=== PATIENT | female | born 1970 | race Caucasian/White ===

== ENCOUNTER 2016-08-09 20:39 | Emergency (ER) | payer OTHER ==
[2016-08-09] MEDS ORDERED: dexameTHASONE 4 MG/ML 1ML VIAL (J1100) As Ordered ONE (21:07)
[2016-08-09] MEDS ORDERED: clonazePAM 0.5 MG TAB As Ordered ONE (22:37)
--- NOTE | 2016-08-09 22:50 | EDDOCDS ---
Nurse's Notes [facility] Name: Grecia Lainez Age: 46 yrs Sex: Female : 1970 Arrival Date: 08/09/2016 Time: 20:39 Bed 8 Private MD: Khushbu Abreu GOV Diagnosis: Unspecified symptoms and signs involving general sensations and perceptions;Anxiety disorder, unspecified Presentation: 08/09 20:46 Red Flag criteria, patient assessed and taken directly to a bed. cz 20:48 Presenting complaint: Patient states: had two bites of cake started to feel tightness rs3 around throat. took Benadryl. symptoms not relieved. h/o allergic to peanuts and gluten. states " i did not want to use a EpiPen, its too expensive to replace it". Onset: The symptoms/episode began/occurred suddenly. The patient has a history of a previous allergic reaction. The previous reaction was anaphylactic. Anaphylaxis evaluation, the patient reports or I have noted the following symptoms which indicate a significant risk of anaphylaxis: lump in the throat which may suggest laryngeal edema. Adult Sepsis Screening: The patient does not have new or worsening altered mentation. Patient's respiratory rate is less than 22. Systolic blood pressure is greater than 100. Patient has a qSOFA score of 0- Negative Sepsis Screen. Suicide/Homicide risk assessment- the patient denies having any suicidal and/or homicidal ideations and does not present with any other emotional, behavioral or mental health complaints. 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 Transition of care: patient was not received from another setting of care. 20:48 Acuity: SORAIDA Level 3 rs3 20:48 Method Of Arrival: Walkin/Carried/Asstd rs3 Triage Assessment: 20:55 General: Appears in no apparent distress. Pain: Denies pain. HIV screening NA for this rs3 visit Offered previously. Respiratory: Reports shortness of breath on exertion. Historical: - Allergies: Peanut (Anaphylaxis); Gluten Protein (Swelling); PENICILLINS (Anaphylaxis); SULFA (SULFONAMIDES) (Rash); IV Dye (Anaphylaxis); - Home Meds: 1. clonidine HCl 0.1 mg Oral tab 1 tab once daily 2. spironolactone 25 mg Oral tab as needed - PMHx: Anxiety; Hypercholesterolemia; - PSHx: Hysterectomy; ; - Social history: Smoking status: Patient states was never smoker of tobacco. No barriers to communication noted, The patient speaks fluent Fijian. - Family history: Not pertinent. - : The pt / caregiver states he / she is not on anticoagulants. Home medication list is obtained from the patient. - Exposure Risk Screening:: None identified. Screenin:00 Screening information is obtained from the patient. Fall risk: No risks identified. jp6 Assistance ADL's: requires no assistance with activities of daily living. Abuse/DV Screen: The patient / caregiver reports he/she is: not in a situation that causes fear, pain or injury. Nutritional screening: No deficits noted. home support is adequate. 21:17 Advance Directives: Currently, there is a health care proxy, pt's not sure. There is no 6 active DNR order. There is no living will. Assessment: 21:00 General: Appears distressed, well developed, well nourished, Behavior is anxious, jp6 cooperative, Reports taking a bite of banana cake and mouth tingling-states "I guess i'm allergic to gluten". Pain: Denies pain. Neurological: No deficits noted. Level of Consciousness is awake, alert, Oriented to person, place, time. EENT: Oral mucosa is moist. no angioedema noted. Throat is clear. Cardiovascular: No deficits noted. Respiratory: No deficits noted. Airway is patent Respiratory effort is even, unlabored, Respiratory pattern is regular, symmetrical, Breath sounds are clear bilaterally. GI: No deficits noted. : No deficits noted. Derm: No deficits noted. Skin is pink, warm & dry. Musculoskeletal: No deficits noted. 21:17 Reassessment: Pt is extremely anxious.Dexamthasone given as ordered.. jp6 22:02 Reassessment: Patient appears in no apparent distress at this time. Patient states jp6 symptoms have improved. General: Appears in no apparent distress, comfortable, Behavior is anxious. Pain: Denies pain. Neurological: No deficits noted. EENT: No deficits noted. Cardiovascular: No deficits noted. Respiratory: No deficits noted. Airway is patent Respiratory effort is even, unlabored, Respiratory pattern is regular, symmetrical. GI: No deficits noted. : No deficits noted. Derm: No deficits noted. Musculoskeletal: No deficits noted. Vital Signs: 20:41 BP 153 / 90; Pulse 85; Resp 20 S; Temp 96.6(O); Pulse Ox 100% on R/A; Weight 95.25 kg dd6 (R); Height 5 ft. 7 in. (170.18 cm) (R); 20:50 Pulse 90 MON; Pulse Ox 99% ; jp6 21:49 BP 127 / 69 (auto/); jp6 21:49 Pulse 72 MON; Pulse Ox 95% ; jp6 22:01 Pulse 74 MON; Pulse Ox 95% ; jp6 22:40 BP 134 / 82; Pulse 76; Resp 18; Temp 98.3(TE); Pulse Ox 98% on R/A; nahomy 20:41 Body Mass Index 32.89 (95.25 kg, 170.18 cm) dd6 Vitals: 20:41 Log In Time: August 09, 2016 at 20:39. dd6 20:42 RN notified that patient meets Red Flag criteria. dd6 ED Course: 20:40 Patient visited by Desean Ribeiro PCA. dd6 20:40 Khushbu Abreu is Private Physician. dd6 20:40 Patient moved to Waiting dd6 20:45 Patient moved to 8 dd6 20:46 Tremayne Bruce DO is Attending Physician. cs11 20:46 Patient visited by Tremayne Bruce DO. cs11 20:50 Luly Sahni,RN is Primary Nurse. jp6 20:51 Triage Initiated rs3 20:57 Patient visited by Eleanor Hurtado PCA. nahomy 20:57 Pt greeted and oriented to ED. Patient advised of names of staff involved in care, nahomy location of call wolf, wait times and NPO status. Accompanied by Significant Other, Patient has correct armband on for positive identification. Placed in gown. Bed in low position. Call light in reach. Side rails up X2. Seizure precautions initiated. blow down helper on. Pulse ox on. NIBP on. 21:00 The patient / caregiver is instructed regarding the plan of care and ED course. jp6 21:00 Inserted saline lock: 20 gauge in left antecubital area and blood collected. jp6 21:35 [facility] Payment Agreement was scanned into [employer] and attached to record. zo 22:00 Patient visited by Eleanor Hurtado PCA. nahomy 22:01 No procedures done that require assistance. jp6 22:36 Khushbu Abreu is Referral Physician. cs11 22:41 Patient visited by Eleanor Hurtado PCA. nahomy 22:48 Discontinued lock intact, bleeding controlled, pressure dressing applied, No jp6 redness/swelling at site. Administered Medications: 21:16 Drug: Dexamethasone 10 mg [dexamethasone 4 mg/mL injection solution] Route: IV; Rate: jp6 bolus; Site: left antecubital; 22:39 Drug: clonazePAM 0.5 mg [clonazepam 0.5 mg tablet (1 tabs)] Route: PO; jp6 Order Results: There are currently no results for this order. Outcome: 22:37 Discharge ordered by Provider. cs11 22:48 Discharge Assessment: Patient awake, alert and oriented x 3. No cognitive and/or jp6 functional deficits noted. Patient verbalized understanding of disposition instructions. patient administered narcotics - no. Discharge Assessment: patient administered narcotics - yes. Pt provided with safe discharge. The following High Risk Discharge criteria are identified: None. Discharged to home ambulatory, with significant other. Condition: improved. Discharge instructions given to patient, Instructed on discharge instructions, follow up and referral plans. Demonstrated understanding of instructions, Pt was receptive of discharge instructions/ teaching. No special radiology studies were completed. Property sent home with patient. 22:50 Patient left the ED. jp6 Signatures: Júnior Jones, RN Kavon Vieira Daniell, BOOK EDITOR BOOK EDITOR dd6 Mena Jackson RN RN rs3 Eleanor Hurtado, BOOK EDITOR BOOK EDITOR nahomy Tremayne Bruce, DO DO cs11 Luly Sahni RN RN jp6 MTDD
--- NOTE | 2016-08-09 22:50 | EDDOCDS ---
Physician Documentation [facility] Name: Grecia Lainez Age: 46 yrs Sex: Female : 1970 Arrival Date: 08/09/2016 Time: 20:39 Bed 8 Private MD: Khushbu Abreu, GOV Disposition: 08/09/16 22:37 Discharged to Home/Self Care. Impression: Unspecified symptoms and signs involving general sensations and perceptions, Anxiety disorder, unspecified. - Condition is Stable. - Medication Reconciliation, Local Pharmacy Hours form. - Follow up: Khushbu Abreu; When: Call to arrange an appointment; Reason: Recheck today's complaints. - Problem is new. - Symptoms have improved. Historical: - Allergies: Peanut (Anaphylaxis); Gluten Protein (Swelling); PENICILLINS (Anaphylaxis); SULFA (SULFONAMIDES) (Rash); IV Dye (Anaphylaxis); - Home Meds: 1. clonidine HCl 0.1 mg Oral tab 1 tab once daily 2. spironolactone 25 mg Oral tab as needed - PMHx: Anxiety; Hypercholesterolemia; - PSHx: Hysterectomy; ; - Social history: Smoking status: Patient states was never smoker of tobacco. No barriers to communication noted, The patient speaks fluent Malaysian. - Family history: Not pertinent. - : The pt / caregiver states he / she is not on anticoagulants. Home medication list is obtained from the patient. - Exposure Risk Screening:: None identified. Vital Signs: 08/09 20:41 BP 153 / 90; Pulse 85; Resp 20 S; Temp 96.6(O); Pulse Ox 100% on R/A; Weight 95.25 kg / dd6 209.99 lbs (R); Height 5 ft. 7 in. (170.18 cm) (R); 20:50 Pulse 90 MON; Pulse Ox 99% ; jp6 21:49 BP 127 / 69 (auto/); jp6 21:49 Pulse 72 MON; Pulse Ox 95% ; jp6 22:01 Pulse 74 MON; Pulse Ox 95% ; jp6 22:40 BP 134 / 82; Pulse 76; Resp 18; Temp 98.3(TE); Pulse Ox 98% on R/A; nahomy 20:41 Body Mass Index 32.89 (95.25 kg, 170.18 cm) dd6 MDM: 21:01 Dexamethasone 10 mg IV at bolus once ordered. cs11 21:35 Financial registration complete. zo 21:35 [facility] Payment Agreement was scanned into [employer] and attached to record. zo 22:32 clonazePAM 0.5 mg PO once ordered. cs11 Administered Medications: 21:16 Drug: Dexamethasone 10 mg [dexamethasone 4 mg/mL injection solution] Route: IV; Rate: jp6 bolus; Site: left antecubital; 22:39 Drug: clonazePAM 0.5 mg [clonazepam 0.5 mg tablet (1 tabs)] Route: PO; jp6 Signatures: Kavon Smith RosemaryRN RN rs3 Tremayne Bruce DO DO cs11 Luly Sahni RN RN jp6 The chart was reviewed and I authenticate all verbal orders and agree with the evaluation and treatment provided.Attachments: 21:35 [facility] Payment Agreement zo MTDD
--- NOTE | 2016-08-11 23:51 | EDDOCDS ---
Physician Documentation [facility] Name: Grecia Lainez Age: 46 yrs Sex: Female : 1970 Arrival Date: 08/09/2016 Time: 20:39 Bed 8 Private MD: Khushbu Abreu, GOV Disposition: 08/09/16 22:37 Discharged to Home/Self Care. Impression: Unspecified symptoms and signs involving general sensations and perceptions, Anxiety disorder, unspecified. - Condition is Stable. - Medication Reconciliation, Local Pharmacy Hours form. - Follow up: Khushbu Abreu; When: Call to arrange an appointment; Reason: Recheck today's complaints. - Problem is new. - Symptoms have improved. Historical: - Allergies: Peanut (Anaphylaxis); Gluten Protein (Swelling); PENICILLINS (Anaphylaxis); SULFA (SULFONAMIDES) (Rash); IV Dye (Anaphylaxis); - Home Meds: 1. clonidine HCl 0.1 mg Oral tab 1 tab once daily 2. spironolactone 25 mg Oral tab as needed - PMHx: Anxiety; Hypercholesterolemia; - PSHx: Hysterectomy; ; - Social history: Smoking status: Patient states was never smoker of tobacco. No barriers to communication noted, The patient speaks fluent Algerian. - Family history: Not pertinent. - : The pt / caregiver states he / she is not on anticoagulants. Home medication list is obtained from the patient. - Exposure Risk Screening:: None identified. Vital Signs: 08/09 20:41 BP 153 / 90; Pulse 85; Resp 20 S; Temp 96.6(O); Pulse Ox 100% on R/A; Weight 95.25 kg / dd6 209.99 lbs (R); Height 5 ft. 7 in. (170.18 cm) (R); 20:50 Pulse 90 MON; Pulse Ox 99% ; jp6 21:49 BP 127 / 69 (auto/); jp6 21:49 Pulse 72 MON; Pulse Ox 95% ; jp6 22:01 Pulse 74 MON; Pulse Ox 95% ; jp6 22:40 BP 134 / 82; Pulse 76; Resp 18; Temp 98.3(TE); Pulse Ox 98% on R/A; nahomy 20:41 Body Mass Index 32.89 (95.25 kg, 170.18 cm) dd6 MDM: 21:01 Dexamethasone 10 mg IV at bolus once ordered. cs11 21:35 Financial registration complete. zo 21:35 [facility] Payment Agreement was scanned into [employer] and attached to record. zo 22:32 clonazePAM 0.5 mg PO once ordered. cs11 08/10 13:05 T-Sheet-- Draft Copy was scanned into [employer] and attached to record. gb Administered Medications: 08/09 21:16 Drug: Dexamethasone 10 mg [dexamethasone 4 mg/mL injection solution] Route: IV; Rate: jp6 bolus; Site: left antecubital; 22:39 Drug: clonazePAM 0.5 mg [clonazepam 0.5 mg tablet (1 tabs)] Route: PO; jp6 Signatures: Rachel Treviño, Reg Reg gb Luis, Kavon zo Mena Jackson,RN RN rs3 Tremayne Bruce DO DO cs11 Luly Sahni RN RN jp6 The chart was reviewed and I authenticate all verbal orders and agree with the evaluation and treatment provided.Attachments: 21:35 [facility] Payment Agreement zo 08/10 13:05 T-Sheet-- Draft Copy gb Chart Complete MTDD
--- NOTE | 2016-08-11 23:51 | EDDOCDS ---
Physician Documentation [facility] Name: Grecia Lainez Age: 46 yrs Sex: Female : 1970 Arrival Date: 08/09/2016 Time: 20:39 Bed 8 Private MD: Khushbu Abreu, GOV Disposition: 08/09/16 22:37 Discharged to Home/Self Care. Impression: Unspecified symptoms and signs involving general sensations and perceptions, Anxiety disorder, unspecified. - Condition is Stable. - Medication Reconciliation, Local Pharmacy Hours form. - Follow up: Khushbu Abreu; When: Call to arrange an appointment; Reason: Recheck today's complaints. - Problem is new. - Symptoms have improved. Historical: - Allergies: Peanut (Anaphylaxis); Gluten Protein (Swelling); PENICILLINS (Anaphylaxis); SULFA (SULFONAMIDES) (Rash); IV Dye (Anaphylaxis); - Home Meds: 1. clonidine HCl 0.1 mg Oral tab 1 tab once daily 2. spironolactone 25 mg Oral tab as needed - PMHx: Anxiety; Hypercholesterolemia; - PSHx: Hysterectomy; ; - Social history: Smoking status: Patient states was never smoker of tobacco. No barriers to communication noted, The patient speaks fluent Czech. - Family history: Not pertinent. - : The pt / caregiver states he / she is not on anticoagulants. Home medication list is obtained from the patient. - Exposure Risk Screening:: None identified. Vital Signs: 08/09 20:41 BP 153 / 90; Pulse 85; Resp 20 S; Temp 96.6(O); Pulse Ox 100% on R/A; Weight 95.25 kg / dd6 209.99 lbs (R); Height 5 ft. 7 in. (170.18 cm) (R); 20:50 Pulse 90 MON; Pulse Ox 99% ; jp6 21:49 BP 127 / 69 (auto/); jp6 21:49 Pulse 72 MON; Pulse Ox 95% ; jp6 22:01 Pulse 74 MON; Pulse Ox 95% ; jp6 22:40 BP 134 / 82; Pulse 76; Resp 18; Temp 98.3(TE); Pulse Ox 98% on R/A; nahomy 20:41 Body Mass Index 32.89 (95.25 kg, 170.18 cm) dd6 MDM: 21:01 Dexamethasone 10 mg IV at bolus once ordered. cs11 21:35 Financial registration complete. zo 21:35 [facility] Payment Agreement was scanned into [employer] and attached to record. zo 22:32 clonazePAM 0.5 mg PO once ordered. cs11 08/10 13:05 T-Sheet-- Draft Copy was scanned into [employer] and attached to record. gb Administered Medications: 08/09 21:16 Drug: Dexamethasone 10 mg [dexamethasone 4 mg/mL injection solution] Route: IV; Rate: jp6 bolus; Site: left antecubital; 22:39 Drug: clonazePAM 0.5 mg [clonazepam 0.5 mg tablet (1 tabs)] Route: PO; jp6 Signatures: Rachel Treviño, Reg Reg gb Luis, Kavon zo Mena Jackson,RN RN rs3 Tremayne Bruce DO DO cs11 Luly Sahni RN RN jp6 The chart was reviewed and I authenticate all verbal orders and agree with the evaluation and treatment provided.Attachments: 21:35 [facility] Payment Agreement zo 08/10 13:05 T-Sheet-- Draft Copy gb Chart Complete MTDD
--- NOTE | 2016-08-11 23:51 | EDDOCDS ---
Nurse's Notes [facility] Name: Grecia Lainez Age: 46 yrs Sex: Female : 1970 Arrival Date: 08/09/2016 Time: 20:39 Bed 8 Private MD: Khushbu Abreu GOV Diagnosis: Unspecified symptoms and signs involving general sensations and perceptions;Anxiety disorder, unspecified Presentation: 08/09 20:46 Red Flag criteria, patient assessed and taken directly to a bed. cz 20:48 Presenting complaint: Patient states: had two bites of cake started to feel tightness rs3 around throat. took Benadryl. symptoms not relieved. h/o allergic to peanuts and gluten. states " i did not want to use a EpiPen, its too expensive to replace it". Onset: The symptoms/episode began/occurred suddenly. The patient has a history of a previous allergic reaction. The previous reaction was anaphylactic. Anaphylaxis evaluation, the patient reports or I have noted the following symptoms which indicate a significant risk of anaphylaxis: lump in the throat which may suggest laryngeal edema. Adult Sepsis Screening: The patient does not have new or worsening altered mentation. Patient's respiratory rate is less than 22. Systolic blood pressure is greater than 100. Patient has a qSOFA score of 0- Negative Sepsis Screen. Suicide/Homicide risk assessment- the patient denies having any suicidal and/or homicidal ideations and does not present with any other emotional, behavioral or mental health complaints. 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 Transition of care: patient was not received from another setting of care. 20:48 Acuity: SORAIDA Level 3 rs3 20:48 Method Of Arrival: Walkin/Carried/Asstd rs3 Triage Assessment: 20:55 General: Appears in no apparent distress. Pain: Denies pain. HIV screening NA for this rs3 visit Offered previously. Respiratory: Reports shortness of breath on exertion. Historical: - Allergies: Peanut (Anaphylaxis); Gluten Protein (Swelling); PENICILLINS (Anaphylaxis); SULFA (SULFONAMIDES) (Rash); IV Dye (Anaphylaxis); - Home Meds: 1. clonidine HCl 0.1 mg Oral tab 1 tab once daily 2. spironolactone 25 mg Oral tab as needed - PMHx: Anxiety; Hypercholesterolemia; - PSHx: Hysterectomy; ; - Social history: Smoking status: Patient states was never smoker of tobacco. No barriers to communication noted, The patient speaks fluent Maltese. - Family history: Not pertinent. - : The pt / caregiver states he / she is not on anticoagulants. Home medication list is obtained from the patient. - Exposure Risk Screening:: None identified. Screenin:00 Screening information is obtained from the patient. Fall risk: No risks identified. jp6 Assistance ADL's: requires no assistance with activities of daily living. Abuse/DV Screen: The patient / caregiver reports he/she is: not in a situation that causes fear, pain or injury. Nutritional screening: No deficits noted. home support is adequate. 21:17 Advance Directives: Currently, there is a health care proxy, pt's not sure. There is no 6 active DNR order. There is no living will. Assessment: 21:00 General: Appears distressed, well developed, well nourished, Behavior is anxious, jp6 cooperative, Reports taking a bite of banana cake and mouth tingling-states "I guess i'm allergic to gluten". Pain: Denies pain. Neurological: No deficits noted. Level of Consciousness is awake, alert, Oriented to person, place, time. EENT: Oral mucosa is moist. no angioedema noted. Throat is clear. Cardiovascular: No deficits noted. Respiratory: No deficits noted. Airway is patent Respiratory effort is even, unlabored, Respiratory pattern is regular, symmetrical, Breath sounds are clear bilaterally. GI: No deficits noted. : No deficits noted. Derm: No deficits noted. Skin is pink, warm & dry. Musculoskeletal: No deficits noted. 21:17 Reassessment: Pt is extremely anxious.Dexamthasone given as ordered.. jp6 22:02 Reassessment: Patient appears in no apparent distress at this time. Patient states jp6 symptoms have improved. General: Appears in no apparent distress, comfortable, Behavior is anxious. Pain: Denies pain. Neurological: No deficits noted. EENT: No deficits noted. Cardiovascular: No deficits noted. Respiratory: No deficits noted. Airway is patent Respiratory effort is even, unlabored, Respiratory pattern is regular, symmetrical. GI: No deficits noted. : No deficits noted. Derm: No deficits noted. Musculoskeletal: No deficits noted. Vital Signs: 20:41 BP 153 / 90; Pulse 85; Resp 20 S; Temp 96.6(O); Pulse Ox 100% on R/A; Weight 95.25 kg dd6 (R); Height 5 ft. 7 in. (170.18 cm) (R); 20:50 Pulse 90 MON; Pulse Ox 99% ; jp6 21:49 BP 127 / 69 (auto/); jp6 21:49 Pulse 72 MON; Pulse Ox 95% ; jp6 22:01 Pulse 74 MON; Pulse Ox 95% ; jp6 22:40 BP 134 / 82; Pulse 76; Resp 18; Temp 98.3(TE); Pulse Ox 98% on R/A; nahomy 20:41 Body Mass Index 32.89 (95.25 kg, 170.18 cm) dd6 Vitals: 20:41 Log In Time: August 09, 2016 at 20:39. dd6 20:42 RN notified that patient meets Red Flag criteria. dd6 ED Course: 20:40 Patient visited by Desean Ribeiro PCA. dd6 20:40 Khushbu Abreu is Private Physician. dd6 20:40 Patient moved to Waiting dd6 20:45 Patient moved to 8 dd6 20:46 Tremayne Bruce DO is Attending Physician. cs11 20:46 Patient visited by Tremayne Bruce DO. cs11 20:50 Luly Sahni,RN is Primary Nurse. jp6 20:51 Triage Initiated rs3 20:57 Patient visited by Eleanor Hurtado PCA. nahomy 20:57 Pt greeted and oriented to ED. Patient advised of names of staff involved in care, nahomy location of call wolf, wait times and NPO status. Accompanied by Significant Other, Patient has correct armband on for positive identification. Placed in gown. Bed in low position. Call light in reach. Side rails up X2. Seizure precautions initiated. telemetry monitor on. Pulse ox on. NIBP on. 21:00 The patient / caregiver is instructed regarding the plan of care and ED course. jp6 21:00 Inserted saline lock: 20 gauge in left antecubital area and blood collected. jp6 21:35 ON LICENSE OF [facility] Payment Agreement was scanned into [employer] and attached to record. zo 22:00 Patient visited by Eleanor Hurtado PCA. nahomy 22:01 No procedures done that require assistance. jp6 22:36 Khushbu Abreu is Referral Physician. cs11 22:41 Patient visited by Eleanor Hurtado PCA. nahomy 22:48 Discontinued lock intact, bleeding controlled, pressure dressing applied, No jp6 redness/swelling at site. 08/10 13:05 T-Sheet-- Draft Copy was scanned into [employer] and attached to record. gb Administered Medications: 08/09 21:16 Drug: Dexamethasone 10 mg [dexamethasone 4 mg/mL injection solution] Route: IV; Rate: jp6 bolus; Site: left antecubital; 22:39 Drug: clonazePAM 0.5 mg [clonazepam 0.5 mg tablet (1 tabs)] Route: PO; jp6 Order Results: There are currently no results for this order. Outcome: 22:37 Discharge ordered by Provider. cs11 22:48 Discharge Assessment: Patient awake, alert and oriented x 3. No cognitive and/or jp6 functional deficits noted. Patient verbalized understanding of disposition instructions. patient administered narcotics - no. Discharge Assessment: patient administered narcotics - yes. Pt provided with safe discharge. The following High Risk Discharge criteria are identified: None. Discharged to home ambulatory, with significant other. Condition: improved. Discharge instructions given to patient, Instructed on discharge instructions, follow up and referral plans. Demonstrated understanding of instructions, Pt was receptive of discharge instructions/ teaching. No special radiology studies were completed. Property sent home with patient. 22:50 Patient left the ED. jp6 Signatures: Júnior Jones, Rachel Urias RN, Reg Reg Kavon Samuels Daniell, PERSONAL PROPERTY APPRAISER PERSONAL PROPERTY APPRAISER dd6 Mena JacksonRN RN rs3 Eleanor Hurtado, PERSONAL PROPERTY APPRAISER PERSONAL PROPERTY APPRAISER nahomy Tremayne Bruce DO DO cs11 Luly Sahni RN RN jp6 Chart Complete MTDD
== END 2016-08-09 22:50 | disposition home or self-care (01) ==
LOC: M ED 20:39
DX: R44.9 Unspecified symptoms and signs involving general sensations and perceptions (principal); F41.9 Anxiety disorder, unspecified; E78.00 Pure hypercholesterolemia, unspecified; Z91.010 Allergy to peanuts; Z91.02 Food additives allergy status; Z88.0 Allergy status to penicillin; Z88.2 Allergy status to sulfonamides; Z91.041 Radiographic dye allergy status; Z79.899 Other long term (current) drug therapy

== ENCOUNTER 2016-09-23 16:03 | Emergency (ER) | payer OTHER ==
[~2016-09-23] VITALS: Ht 170.2 cm; Wt 95.3 kg
[2016-09-23] MEDS ORDERED: CLON-412 (16:17)
[2016-09-23] MEDS ORDERED: PANT40TA2 (16:17)
[2016-09-23] MEDS ORDERED: ALBU17IN INH (17:18)
[2016-09-23 17:27] VITALS: BP 133/74
--- NOTE | 2016-09-23 18:08 | ECGEPIP ---
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
== END 2016-09-23 17:38 | disposition home or self-care (01) ==
LOC: M ED 17:33
DX: R06.02 Shortness of breath (principal); R42 Dizziness and giddiness; K21.9 Gastro-esophageal reflux disease without esophagitis

== ENCOUNTER 2017-02-13 16:02 | Emergency (ER) | payer OTHER ==
[~2017-02-13] VITALS: Ht 170.2 cm; Wt 95.2 kg
[~2017-02-13 16:02] MED LIST: ALBU17IN INH; CLON-412; PANT40TA2
[2017-02-13] MEDS ORDERED: BENA25TA10 PO ×2 (16:13→18:12)
[2017-02-13] MEDS ORDERED: ASPI81TA85 PO (16:13)
[2017-02-13] MEDS ORDERED: diphenhydrAMINE 50 MG CAP PO ONE (16:30)
[2017-02-13] MEDS ORDERED: diphenhydrAMINE 25 MG CAP PO ONE (16:30)
[2017-02-13 18:35] VITALS: BP 124/83
== END 2017-02-13 18:35 | disposition home or self-care (01) ==
LOC: M ED 16:02
DX: T78.40XA Allergy, unspecified, initial encounter (principal); Y92.9 Unspecified place or not applicable; Y93.9 Activity, unspecified; Z79.82 Long term (current) use of aspirin; Z79.899 Other long term (current) drug therapy; Z88.0 Allergy status to penicillin; Z91.041 Radiographic dye allergy status

== ENCOUNTER 2017-04-05 13:37 | Emergency (ER) | payer OTHER ==
[~2017-04-05] VITALS: Ht 170.2 cm; Wt 97.7 kg
[~2017-04-05 13:37] MED LIST changes: +ASPI81TA85 PO; +BENA25TA10 PO
[2017-04-05] MEDS ORDERED: PRED10PA (13:53)
[2017-04-05] MEDS ORDERED: hydrOXYzine 25 MG TAB PO ONE (14:15)
--- NOTE | 2017-04-05 14:44 | REP ---
Head CT without contrast: History: Headache. Comparison study: No comparison. CT findings: Bone window settings demonstrate an intact bony calvarium. There is no evidence of skull fracture or incidental bony calvarial lesion. The visualized paranasal sinuses appear clear. No intraorbital abnormality is seen. On soft tissue window setting images; the lateral, third, and fourth ventricles are normal in size and position. Lee-white differentiation pattern is normal above and below the tentorium. There are is no evidence of intracranial hemorrhage. No mass, edema, infarction, or midline shift is seen. No extra-axial fluid collection is appreciated. Impression: Negative noncontrast head CT. Signed by Royer Ortega MD 04/05/2017 02:36 P
--- NOTE | 2017-04-05 14:47 | REP ---
CT study of the cervical spine without contrast: History: Headache. Technique: Helical scanning is acquired and overlapping 2 mm high resolution axial images were generated and reviewed at bone and soft tissue window settings. Coronal and sagittal multiplanar re-formations images are generated. CT findings: There is no evidence of cervical spine element fracture. No skull base fracture is seen. Cervical vertebral body heights are preserved. Alignment is normal. There is straightening of the normal cervical lordosis. There is a mild dextroconvex curve in the cervical spine. Facet joints are normally aligned bilaterally at each cervical level on multiplanar re-formations images. There is no evidence of intraspinal or paraspinal hematoma. No extra vertebral abnormality is seen. Impression: Negative CT study of the cervical spine without contrast. Straightening. No fracture seen. Signed by Royer Ortega MD 04/05/2017 02:38 P
[2017-04-05 15:40] VITALS: BP 119/88
== END 2017-04-05 15:42 | disposition home or self-care (01) ==
LOC: M ED 13:37 → EDBD 13:37 → M ED 15:42
DX: G62.9 Polyneuropathy, unspecified (principal); B19.9 Unspecified viral hepatitis without hepatic coma; Z79.899 Other long term (current) drug therapy; Z79.82 Long term (current) use of aspirin; Z88.0 Allergy status to penicillin; Z88.1 Allergy status to other antibiotic agents; Z88.2 Allergy status to sulfonamides; Z91.011 Allergy to milk products

== ENCOUNTER 2017-04-06 19:39 | Emergency (ER) | payer OTHER ==
[~2017-04-06] VITALS: Ht 170.2 cm; Wt 95.5 kg
[~2017-04-06 19:39] MED LIST changes: +PRED10PA
[2017-04-06] MEDS ORDERED: GABAPENTIN 100 MG CAP PO ONE (23:45)
[2017-04-06] MEDS ORDERED: NS 1,000 ML IV ONE (23:45)
[2017-04-07 00:16] VITALS: BP 148/74
[2017-04-07] MEDS ORDERED: CYCL5TAB PO (00:17)
== END 2017-04-07 00:36 | disposition home or self-care (01) ==
LOC: M ED 19:39
DX: M62.830 Muscle spasm of back (principal); R25.2 Cramp and spasm; Z86.718 Personal history of other venous thrombosis and embolism; R79.89 Other specified abnormal findings of blood chemistry; Z79.82 Long term (current) use of aspirin; Z79.899 Other long term (current) drug therapy; Z91.041 Radiographic dye allergy status; Z91.010 Allergy to peanuts; Z88.0 Allergy status to penicillin; Z88.2 Allergy status to sulfonamides; Z88.5 Allergy status to narcotic agent
CPT/HCPCS: 99283; J3360

== ENCOUNTER → 2017-07-30 | Outpatient (CLI) | payer OTHER ==
[2017-07-30 18:04] LABS: HEMATOCRIT 42.3 % (36.0-47.0); HEMOGLOBIN 13.8 g/dl (12.0-16.0); MEAN CORPUSCULAR HEMOGLOBIN 29.1 pg (27.0-33.0); MEAN CORPUSCULAR HGB CONC 32.6 g/dl (32.0-36.5); MEAN CORPUSCULAR VOLUME 89.1 fl (80.0-96.0); PLATELET COUNT, AUTOMATED 188 10^3/uL (150-450); RED BLOOD COUNT 4.75 10^6/uL (4.00-5.40); RED CELL DISTRIBUTION WIDTH 12.6 % (11.5-14.5); WHITE BLOOD COUNT 4.4 10^3/uL (4.0-10.0)
[2017-07-30 18:31] LABS: THYROGLOBULIN ANTIBODY 23.6 U/ML (<60.0); THYROID PEROXIDASE ANTIBODY < 28.0 U/ML (<60.0)
[2017-07-30 18:32] LABS: TOTAL T3 130.9 NG/DL (60.0-181.0)
[2017-07-30 18:48] LABS: ALBUMIN 4.4 GM/DL (3.2-5.2); ALBUMIN/GLOBULIN RATIO 1.29 (1.00-1.93); ALKALINE PHOSPHATASE 81 U/L (45-117); ALT/SGPT 47 U/L (12-78); ANION GAP 8 MEQ/L (8-16); AST/SGOT 29 U/L (7-37); BILIRUBIN,TOTAL 0.4 MG/DL (0.2-1.0); BLOOD UREA NITROGEN 11 MG/DL (7-18); CALCIUM LEVEL 9.4 MG/DL (8.5-10.1); CARBON DIOXIDE LEVEL 29 MEQ/L (21-32); CHLORIDE LEVEL 105 MEQ/L (98-107); CREATININE FOR GFR 0.94 MG/DL (0.55-1.02); GLOMERULAR FILTRATION RATE > 60.0 (>58); GLUCOSE, FASTING 91 MG/DL (70-105); POTASSIUM SERUM 4.1 MEQ/L (3.5-5.1); RHEUMATOID FACTOR QUANT < 10.0 IU/ML (0-15.0); SODIUM LEVEL 142 MEQ/L (136-145); THYROXINE (T4) 12.3 UG/DL (4.5-12.0); TOTAL PROTEIN 7.8 GM/DL (6.4-8.2)
[2017-07-30 19:40] LABS: ERYTHROCYTE SEDIMENTATION RATE 34 mm/hr (0-20)
== END ==
LOC: M LRY 11:46
DX: L50.1 Idiopathic urticaria (principal)
CPT/HCPCS: 84443

== ENCOUNTER → 2017-09-14 | Outpatient (CLI) | payer OTHER ==
[~2017-09-14] MED LIST changes: -ALBU17IN INH; -ASPI81TA85 PO; -BENA25TA10 PO; -CLON-412; +E-Z-GAS II EFFERVESCENT PACKET (SODIUM BICARB./CITRIC ACID/SIMETHICONE) As Ordered; +E-Z-HD 98% w/w 340GM SUSP BTL As Ordered; +E-Z-PAQUE 96% w/w SUSP 176GM BTL As Ordered; -PANT40TA2; -PRED10PA
== END ==
LOC: M RAD 08:33
DX: R13.10 Dysphagia, unspecified (principal)
CPT/HCPCS: 74220

== ENCOUNTER 2017-09-24 10:13 | Day surgery (SDC) | payer OTHER ==
[2017-09-24] MEDS: NS 1,000 ML IV (10:30)
[2017-09-24] MEDS ORDERED: fentaNYL 100 MCG/2 ML INJECTION (J3010) As Ordered (11:41)
[2017-09-24] MEDS ORDERED: LIDOCAINE 2% INJ 100 MG/5 ML SDV (FOR ANES.) As Ordered (11:50)
[2017-09-24] MEDS ORDERED: PROPOFOL 200 MG/20 ML VIAL As Ordered ×3 (11:50→12:05)
== END 2017-09-24 13:09 | disposition home or self-care (01) ==
LOC: M OPP 10:13
DX: K62.5 Hemorrhage of anus and rectum (principal); K59.00 Constipation, unspecified; K64.8 Other hemorrhoids; Q43.8 Other specified congenital malformations of intestine; R13.10 Dysphagia, unspecified; K21.9 Gastro-esophageal reflux disease without esophagitis; R12 Heartburn; M54.89 Other dorsalgia; M54.2 Cervicalgia; F41.9 Anxiety disorder, unspecified; F32.9 Major depressive disorder, single episode, unspecified; F90.0 Attention-deficit hyperactivity disorder, predominantly inattentive type; Z91.048 Other nonmedicinal substance allergy status; Z91.041 Radiographic dye allergy status; Z88.5 Allergy status to narcotic agent; Z88.2 Allergy status to sulfonamides; Z88.0 Allergy status to penicillin; Z79.82 Long term (current) use of aspirin; Z79.899 Other long term (current) drug therapy
CPT/HCPCS: 45378

== ENCOUNTER → 2017-10-10 | Outpatient (CLI) | payer OTHER | LOC: M LRY 09:28 | DX: S99.921A Unspecified injury of right foot, initial encounter (principal); X58.XXXA Exposure to other specified factors, initial encounter; Y92.9 Unspecified place or not applicable; M77.31 Calcaneal spur, right foot | CPT/HCPCS: 73630 ==

== ENCOUNTER 2018-03-25 16:37 | Emergency (ER) | payer OTHER ==
[2018-03-25] MEDS: CYCLOBENZAPRINE 5MG TABLET PO (17:21)
[2018-03-25] MEDS: NAPROXEN 250 MG TAB PO (17:21)
== END 2018-03-25 17:59 | disposition home or self-care (01) ==
LOC: M ED 16:37
DX: M51.34 Other intervertebral disc degeneration, thoracic region (principal); G89.29 Other chronic pain; K21.9 Gastro-esophageal reflux disease without esophagitis; F41.9 Anxiety disorder, unspecified; F33.9 Major depressive disorder, recurrent, unspecified; Z91.041 Radiographic dye allergy status; Z88.0 Allergy status to penicillin; Z88.1 Allergy status to other antibiotic agents; Z88.2 Allergy status to sulfonamides; Z91.048 Other nonmedicinal substance allergy status
CPT/HCPCS: 72128

== ENCOUNTER 2018-05-10 20:00 | Emergency (ER) | payer OTHER, SELFPAY ==
[2018-05-10 20:44] LABS: BASO % 0.5 % (0.0-1.0); EOS # 0.1 10^3/uL (0.0-0.50); EOS % 1.3 % (0.0-3.0); HEMOGLOBIN 12.7 g/dl (12.0-15.5); IMMATURE GRANULOCYTE % 0.3 % (0-3.0); LYMPH # 1.9 10^3/uL (1.5-4.5); LYMPH % 31.5 % (24.0-44.0); MEAN CORPUSCULAR HEMOGLOBIN 29.7 pg (27.0-33.0); MEAN CORPUSCULAR HGB CONC 33.4 g/dl (32.0-36.5); MEAN CORPUSCULAR VOLUME 88.8 fl (80.0-96.0); MONO # 0.5 10^3/uL (0.0-0.8); MONO % 7.8 % (0.0-5.0); NEUTROPHILS # 3.5 10^3/uL (1.8-7.7); NEUTROPHILS % 58.6 % (36.0-66.0); PLATELET COUNT, AUTOMATED 188 10^3/uL (150-450); RED BLOOD COUNT 4.28 10^6/uL (4.00-5.40); RED CELL DISTRIBUTION WIDTH 13.1 % (11.5-14.5); WHITE BLOOD COUNT 5.9 10^3/uL (4.0-10.0)
[2018-05-10] MEDS: KETOROLAC 30 MG/ML VIAL (J1885) IV (21:00)
[2018-05-10 21:08] LABS: ANION GAP 7 MEQ/L (8-16); BLOOD UREA NITROGEN 19 MG/DL (7-18); CARBON DIOXIDE LEVEL 30 MEQ/L (21-32); CHLORIDE LEVEL 104 MEQ/L (98-107); CPK CREATINE PHOSPHOKINASE 118 U/L (26-192); GLOMERULAR FILTRATION RATE 56.4 (>58); GLUCOSE, FASTING 103 MG/DL (70-100); MB/CK RELATIVE INDEX 1.27 (< OR =4); SODIUM LEVEL 141 MEQ/L (136-145); TROPONIN I < 0.02 NG/ML (< 0.10)
[2018-05-10 22:18] LABS: ABG BASE EXCESS 0.9 (-2.0-2.0); ABG HCO3 24.3 MEQ/L (22.0-26.0); ABG O2 SATURATION 98.8 % (95.0-99.0); ABG PARTIAL PRESSURE CO2 34.8 mmHg (35.0-45.0); ABG PARTIAL PRESSURE O2 131.6 mmHg (75.0-100.0); ABG STANDARD HCO3 25.3 MEQ/L (22.0-26.0); ABG TOTAL CO2 25.4 MEQ/L (22.0-29.0); ABG pH (ARTERIAL) 7.462 UNITS (7.350-7.450)
[2018-05-10] MEDS: NS 1,000 ML IV (22:36)
== END 2018-05-11 00:20 | disposition home or self-care (01) ==
LOC: M ED 05-11 00:20
DX: R07.1 Chest pain on breathing (principal); K21.9 Gastro-esophageal reflux disease without esophagitis; Z86.718 Personal history of other venous thrombosis and embolism; Z91.041 Radiographic dye allergy status; Z88.0 Allergy status to penicillin; Z88.5 Allergy status to narcotic agent; Z88.2 Allergy status to sulfonamides; Z91.048 Other nonmedicinal substance allergy status; Z79.899 Other long term (current) drug therapy; Z79.82 Long term (current) use of aspirin
CPT/HCPCS: 71045

== ENCOUNTER → 2018-07-15 | Outpatient (REF) | payer OTHER ==
[~2018-07-15] MED LIST changes: +ALBU17IN INH; +ASPI81TA85 PO; +BENA25TA10 PO; +BUPR150T3; +CLON-412; +CYCL5TAB PO; -E-Z-GAS II EFFERVESCENT PACKET (SODIUM BICARB./CITRIC ACID/SIMETHICONE) As Ordered; -E-Z-HD 98% w/w 340GM SUSP BTL As Ordered; -E-Z-PAQUE 96% w/w SUSP 176GM BTL As Ordered; +EQ A; +FIBE625T22 PO; +MECL-86 PO; +MECL1CHW2 PO; +MULT1TAB10 PO; +PANT20TA2 PO; +PANT40TA3; +PRED10PA; +SENN1TAB10 PO
== END ==
LOC: M SFHCPLAZ 11:34
PROVIDERS: ATTEND Dermatology
DX: D22.5 Melanocytic nevi of trunk (principal)

== ENCOUNTER 2018-08-26 13:29 | Emergency (ER) | payer BC, OTHER ==
[~2018-08-26] VITALS: Ht 170.2 cm; Wt 100.0 kg
[~2018-08-26 13:29] MED LIST changes: -MECL-86 PO; -MECL1CHW2 PO; -PANT20TA2 PO
[2018-08-26] MEDS ORDERED: PANT20TA2 PO (13:41)
[2018-08-26] MEDS ORDERED: MECL1CHW2 PO (13:41)
[2018-08-26] MEDS ORDERED: MECL-86 PO (13:42)
[2018-08-26 14:09] LABS: BASO % 0.4 % (0.0-1.0); EOS # 0.1 10^3/uL (0.0-0.50); EOS % 1.4 % (0.0-3.0); HEMATOCRIT 40.9 % (36.0-47.0); HEMOGLOBIN 13.5 g/dl (12.0-15.5); LYMPH # 1.8 10^3/uL (1.5-4.5); LYMPH % 36.5 % (24.0-44.0); MEAN CORPUSCULAR HEMOGLOBIN 28.9 pg (27.0-33.0); MEAN CORPUSCULAR VOLUME 87.6 fl (80.0-96.0); MONO # 0.4 10^3/uL (0.0-0.8); MONO % 8.3 % (0.0-5.0); NEUTROPHILS # 2.6 10^3/uL (1.8-7.7); NEUTROPHILS % 53.2 % (36.0-66.0); PLATELET COUNT, AUTOMATED 184 10^3/uL (150-450); RED BLOOD COUNT 4.67 10^6/uL (4.00-5.40)
[2018-08-26 14:37] LABS: ALBUMIN 3.8 GM/DL (3.2-5.2); ALT/SGPT 186 U/L (12-78); BILIRUBIN,DIRECT 0.2 MG/DL (0.0-0.2); BILIRUBIN,TOTAL 0.5 MG/DL (0.2-1.0); BLOOD UREA NITROGEN 14 MG/DL (7-18); CALCIUM LEVEL 9.3 MG/DL (8.5-10.1); CARBON DIOXIDE LEVEL 28 MEQ/L (21-32); CHLORIDE LEVEL 106 MEQ/L (98-107); CPK CREATINE PHOSPHOKINASE 79 U/L (26-192); CREATININE FOR GFR 0.86 MG/DL (0.55-1.30); GLOMERULAR FILTRATION RATE > 60.0 (>58); GLUCOSE, FASTING 90 MG/DL (70-100); LIPASE 241 U/L (73-393); MB/CK RELATIVE INDEX 1.52 (< OR =4); POTASSIUM SERUM 4.1 MEQ/L (3.5-5.1); SODIUM LEVEL 139 MEQ/L (136-145); TOTAL PROTEIN 7.7 GM/DL (6.4-8.2); TROPONIN I < 0.02 NG/ML (< 0.10)
[2018-08-26] MEDS ORDERED: GI COCKTAIL 50ML BTL(HYOSCYAMINE/MAALOX/LIDOCAINE VISCOUS)(1:3:1) PO ONE (14:45)
[2018-08-26] MEDS ORDERED: PANTOPRAZOLE 40MG INJ (PROTONIX) (C9113) IV ONE (14:45)
--- NOTE | 2018-08-26 15:41 | REP ---
Chest x-ray: Two views. History: Syncope. Comparison study: May 10, 2018. Findings: EKG monitoring electrodes overlie the chest. There are degenerative changes in the thoracic spine. Pulmonary vasculature is not increased. The lung arias are clear. Pleural angles are sharp. Impression: Negative chest x-ray. Electronically Signed by Royer Ortega MD 08/26/2018 03:55 P
--- NOTE | 2018-08-26 15:44 | REP ---
RIGHT UPPER QUADRANT ULTRASOUND: Real-time sonographic evaluation of the right upper quadrant performed. Mobile gallstone is seen in the gallbladder. The patient was tender in the region of the gallbladder. There is no gallbladder wall thickening or pericholecystic fluid. No intrahepatic biliary diltation is seen. Common bile duct is upper limits of normal at 7 mm. Liver demonstrates increased heterogeneous echotexture diffusely, suggesting diffuse fibrofatty infiltration. No gross liver or pancreatic mass is seen. Pancreas is not optimally seen due to overlying bowel gas. Right kidney demonstrates no hydronephrosis with normal size 10.9 cm in length. IMPRESSION: Mobile gallstone in the gallbladder without gallbladder wall thickening or pericholecystic fluid. Patient was tender at the site of the gallbladder. Common bile duct of 7 mm is upper limits of normal. Diffuse fibrofatty infiltration of the liver. Electronically Signed by Aamir Lee MD 08/26/2018 04:04 P
[2018-08-26 17:23] VITALS: BP 119/85
--- NOTE | 2018-08-27 08:42 | ECGEPIP ---
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
--- NOTE | 2018-08-28 17:32 | ED PDOC ---
Post-Departure Follow-Up us faxed to maurisio mendoza and jeanette for fu Niall Cai MD Aug 28, 2018 17:32
== END 2018-08-26 17:26 | disposition home or self-care (01) ==
LOC: M ED 13:29
DX: K80.50 Calculus of bile duct without cholangitis or cholecystitis without obstruction (principal); R55 Syncope and collapse; K21.9 Gastro-esophageal reflux disease without esophagitis; R42 Dizziness and giddiness; Z88.0 Allergy status to penicillin; Z88.5 Allergy status to narcotic agent; Z88.2 Allergy status to sulfonamides; Z91.048 Other nonmedicinal substance allergy status; Z91.041 Radiographic dye allergy status; Z79.899 Other long term (current) drug therapy
CPT/HCPCS: 36415; 71046; 76705; 80048; 80076; 82550; 82553; 83690; 84484; 85025; 93005; 93041; 94760; 96374; 99285; C9113

== ENCOUNTER → 2018-12-23 | Outpatient (CLI) | payer BC, OTHER ==
[~2018-12-23] MED LIST changes: +MECL-86 PO; +MECL1CHW PO; +PANT20TA2 PO
--- NOTE | 2018-12-23 16:17 | REP ---
MR Brain without contrast History: Weakness Comparison: CT 04/05/2017 A 9 mm focus of mixed decreased and increased signal intensity on T1 and T2-weighted images is present in the left basal ganglia. This represents a cavernous hemangioma. There is no acute intraparenchymal hemorrhage, infarct, mass or midline shift. The ventricular system is normal in appearance. There is no extracerebral collection. The sinuses are clear. Impression: There is a 9 mm cavernous hemangioma in the left basal ganglia. Electronically Signed by Samuel Joaquin MD 12/23/2018 04:08 P
== END ==
LOC: M RAD 15:00
PROVIDERS: ATTEND Family Medicine
DX: D18.09 Hemangioma of other sites (principal); G25.9 Extrapyramidal and movement disorder, unspecified

== ENCOUNTER → 2019-07-13 | Outpatient (REF) | payer OTHER | LOC: M LAB REF 17:26 | PROVIDERS: ATTEND Dermatology | DX: D22.30 Melanocytic nevi of unspecified part of face (principal) ==

== ENCOUNTER → 2019-08-23 | Outpatient (REF) | payer OTHER ==
[2019-08-23 18:32] LABS: BASO % 0.5 % (0.0-1.0); EOS # 0.1 10^3/uL (0.0-0.5); EOS % 1.4 % (0.0-3.0); LYMPH # 1.8 10^3/uL (1.5-5.0); MEAN CORPUSCULAR HEMOGLOBIN 28.6 pg (27.0-33.0); MEAN CORPUSCULAR HGB CONC 31.1 g/dl (32.0-36.5); MONO # 0.5 10^3/uL (0.0-0.8); MONO % 8.8 % (0.0-5.0); NEUTROPHILS # 3.4 10^3/uL (1.5-8.5); NEUTROPHILS % 58.1 % (36.0-66.0); PLATELET COUNT, AUTOMATED 192 10^3/uL (150-450); RED BLOOD COUNT 4.89 10^6/uL (4.00-5.40); WHITE BLOOD COUNT 5.8 10^3/uL (4.0-10.0)
[2019-08-23 18:38] LABS: ALBUMIN 4.1 GM/DL (3.2-5.2); ALT/SGPT 139 U/L (12-78); BILIRUBIN,TOTAL 0.4 MG/DL (0.2-1.0); BLOOD UREA NITROGEN 14 MG/DL (7-18); CALCIUM LEVEL 9.1 MG/DL (8.5-10.1); CARBON DIOXIDE LEVEL 28 MEQ/L (21-32); CHLORIDE LEVEL 109 MEQ/L (98-107); COMPLEMENT C3 161 MG/DL (90-180); COMPLEMENT C4 25 MG/DL (10-40); CREATININE FOR GFR 1.01 MG/DL (0.55-1.30); GLOMERULAR FILTRATION RATE > 60.0 (>58); GLUCOSE, FASTING 70 MG/DL (70-100); POTASSIUM SERUM 4.2 MEQ/L (3.5-5.1); SODIUM LEVEL 142 MEQ/L (136-145); TOTAL PROTEIN 7.7 GM/DL (6.4-8.2)
[2019-08-23 19:02] LABS: ERYTHROCYTE SEDIMENTATION RATE 42 mm/hr (0-20)
== END ==
LOC: M SFHCRHEU 13:44
PROVIDERS: ATTEND Internal Medicine
DX: M35.01 Sjogren syndrome with keratoconjunctivitis (principal)

== ENCOUNTER → 2019-09-18 | Outpatient (REF) | payer OTHER | LOC: M LAB REF 15:53 | PROVIDERS: ATTEND Ophthalmology | DX: H02.9 Unspecified disorder of eyelid (principal) ==

== ENCOUNTER 2020-01-22 12:04 | Emergency (ER) | payer OTHER ==
[~2020-01-22] VITALS: Ht 170.2 cm; Wt 95.5 kg
[2020-01-22 12:23] VITALS: BP 147/92
[2020-01-22] MEDS ORDERED: KETOROLAC 30 MG/ML 1ML VIAL IV ONE ×2 (12:45→17:00)
--- NOTE | 2020-01-22 14:06 | REP ---
LEFT ANKLE: THREE VIEWS. HISTORY: Deformity. FINDINGS: There is a comminuted, slightly impacted fracture through the distal metaphysis of the fibula. There is also an intra-articular posterior and medial fracture of the tibia without displacement. Ankle mortise is intact. 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 There is anterolateral soft tissue swelling. IMPRESSION: Impacted comminuted fracture distal fibular metaphysis. Interarticular medial and posterior fracture of the distal tibia. Trimalleolar fracture without displacement. Heel spurs and midfoot osteoarthritis. Electronically Signed by Royer Ortega MD 01/22/2020 02:46 P
--- NOTE | 2020-01-22 14:06 | REP ---
LEFT TIB-FIB SERIES: FOUR VIEWS. HISTORY: Deformity. FINDINGS: Four views of the left tibia and fibula demonstrate the distal fibular and tibial fractures as seen on the ankle radiographs. Heel spur is noted. There is some patellar spurring. No proximal tibial or fibular fracture is seen. Chondrocalcinosis is noted, and osteoarthritic spurring is noted at the knee. IMPRESSION: Degenerative changes of the knee with chondrocalcinosis. Distal TIB-fib fractures. No proximal fracture seen. Electronically Signed by Royer Ortega MD 01/22/2020 02:46 P
--- NOTE | 2020-01-22 15:10 | REP ---
Clinical: Trauma. Fracture. Technique: Axial noncontrast images through the left ankle with coronal and sagittal re-formations. Findings: Comminuted fractures of the distal fibula and distal tibia including medial and posterior malleoli with disruption to the ankle joint and surrounding post traumatic soft tissue infiltration. Impression: Comminuted intra-articular fractures of the distal fibula and distal tibia with disruption of the ankle joint and surrounding post traumatic infiltration. Electronically Signed by Jose Peters MD 01/22/2020 03:02 P
[2020-01-22] MEDS ORDERED: IBUP80TA PO (16:02)
--- NOTE | 2020-01-22 17:23 | REP ---
Clinical: Status post splinting. Technique: AP, lateral, bilateral oblique views of the left ankle. Findings: Comminuted intra-articular fractures of the distal tibia and fibula noted. Overlying cast material limits evaluation of fine bony detail and soft tissues. Impression: Status post splinting for intra-articular fractures of the distal tibia and fibula. Electronically Signed by Jose Peters MD 01/22/2020 05:14 P
[2020-01-23] MEDS ORDERED: MULTCAP PO (13:43)
[2020-01-23] MEDS ORDERED: CYCL5TAB PO (13:43)
[2020-01-23] MEDS ORDERED: CYAN500T8 PO (13:43)
--- NOTE | 2020-01-23 16:22 | HPE ---
DATE OF ADMISSION: 01/22/2020 CHIEF COMPLAINT: Left ankle fracture. HISTORY OF PRESENT ILLNESS: This 49-year-old female sustained an ankle fracture this morning. Her two dogs ran into her left ankle. She is unable to weightbear. She had immediate pain to left her ankle, swelling and deformity. There was no loss consciousness. No other injuries. PAST MEDICAL HISTORY: Includes left lower extremity deep vein thrombosis (DVT) as well as Sjogren's syndrome and gastroesophageal reflux disease (GERD). She also has fibromyalgia. MEDICATIONS: Include Protonix, vitamin B12, and other vitamins such as calcium. ALLERGIES: PENICILLIN, SULFA, DYE, and LATEX. PAST SURGICAL HISTORY: (C) section in 1987, hysterectomy in 2010, gallbladder, liver biopsy. 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 She is currently unemployed. She does not smoke cigarettes or use tobacco. She drinks alcohol occasionally. No IV drug use or street drug use. PHYSICAL EXAMINATION: This is a well-appearing 49-year-old female. She is in no acute distress. She is alert and oriented times three. There is a closed ankle injury on the left side. There is moderate swelling. No wrinkles. No fracture blisters. Normal sensation in superficial, deep peroneal nerves as well as saphenous peroneal and tibial. Good dorsalis pedis pulse. Foot is warm and well-perfused. She can wiggle her toes. There is no pain at the knee or foot. Radiographs reviewed, AP lateral and two obliques left ankle. This shows ankle trimalleolar fracture. CT scan was obtained. There is a trimalleolar fracture with a moderate-sized posterior malleolar fracture. The ankle is posterolaterally subluxed slightly. Repeat radiographs in the splint show the ankle mortise and talus to be on the tibia without subluxation. ASSESSMENT AND PLAN: This is a 49-year-old female who has a well-reduced left ankle trimalleolar fracture. I have discussed the case with Dr. Moon, our foot and ankle specialist. She would like to see the patient tomorrow in the clinic. I have asked the patient to call tomorrow morning to make the appointment. She needs to be nonweightbearing on crutches, elevate the leg, and use oral pain medication and antiinflammatories. I will leave her possible anticoagulation up to Dr. Moon as she will be actively managing the patient preoperatively and for surgery. I have let the emergency room staff taking care of the patient know that she may be discharged home.
== END 2020-01-22 17:28 | disposition home or self-care (01) ==
LOC: EDBD 12:04 → M ED 12:04
DX: S82.855A Nondisplaced trimalleolar fracture of left lower leg, initial encounter for closed fracture (principal); W01.0XXA Fall on same level from slipping, tripping and stumbling without subsequent striking against object, initial encounter; W54.1XXA Struck by dog, initial encounter; Y92.9 Unspecified place or not applicable; Y93.9 Activity, unspecified; Y99.9 Unspecified external cause status; M79.7 Fibromyalgia; F90.9 Attention-deficit hyperactivity disorder, unspecified type; F41.9 Anxiety disorder, unspecified; F32.9 Major depressive disorder, single episode, unspecified; K21.9 Gastro-esophageal reflux disease without esophagitis; Z79.899 Other long term (current) drug therapy; Z86.718 Personal history of other venous thrombosis and embolism; Z88.0 Allergy status to penicillin; Z88.2 Allergy status to sulfonamides; Z91.040 Latex allergy status; Z91.041 Radiographic dye allergy status; Z91.048 Other nonmedicinal substance allergy status
CPT/HCPCS: 73590; 73610; 73700; 96374; 96376; 99284; J1885

== ENCOUNTER → 2020-01-23 | Outpatient (CLI) | payer OTHER ==
[~2020-01-23] MED LIST changes: +ACET-683 PO; +CYAN500T8 PO; +ELIQ2.5T; +IBUP80TA PO; +LOVE1INJ SC; +MACR100C43 PO; +MULTCAP PO; +OXYC-517 PO; +TRAM50TA2 PO; +XARE10TA PO
== END ==
LOC: M LABSMTC 13:05
PROVIDERS: ATTEND Anesthesiology
DX: Z03.818 Encounter for observation for suspected exposure to other biological agents ruled out (principal); Z11.59 Encounter for screening for other viral diseases
CPT/HCPCS: C9803; U0002

== ENCOUNTER 2020-01-24 07:07 | Day surgery (SDC) | payer OTHER ==
[~2020-01-24] VITALS: Ht 170.2 cm; Wt 95.3 kg
[~2020-01-24 07:07] MED LIST changes: -ACET-683 PO; +CLINDAMYCIN 900 MG in IV 1 EA IV ONE; -ELIQ2.5T; -LOVE1INJ SC; -MACR100C43 PO; -OXYC-517 PO; -TRAM50TA2 PO; -XARE10TA PO
[2020-01-24] MEDS ORDERED: dexameTHASONE 10MG/1ML VIAL PRES.FREE (J1100 PER 1MG) ONE (07:08)
[2020-01-24] MEDS ORDERED: ROPIvacaine 0.5% 30ML INJECTION (J2795 PER 1MG) ONE (07:08)
[2020-01-24] MEDS ORDERED: LIDOCAINE 2% 100MG/5ML SDV (FOR ANES.) As Ordered ONE (08:14)
[2020-01-24] MEDS ORDERED: dexameTHASONE 4 MG/ML 1ML VIAL (J1100 PER 1MG) As Ordered ONE (08:14)
[2020-01-24] MEDS ORDERED: ONDANSETRON 4MG/2ML VIAL As Ordered ONE (08:14)
[2020-01-24] MEDS ORDERED: MIDAZOLAM INJ 2MG/2ML VIAL (J2250 PER 1MG) As Ordered ONE ×2 (08:14→09:35)
[2020-01-24] MEDS ORDERED: propofoL 200 MG/20 ML VIAL As Ordered ONE (08:14)
[2020-01-24] MEDS ORDERED: fentaNYL 100 MCG/2 ML INJECTION (J3010) As Ordered ONE ×2 (08:14→09:35)
[2020-01-24] MEDS ORDERED: ROCURONIUM BROMIDE 50 MG/5 ML VIAL As Ordered ONE ×2 (09:51→11:38)
[2020-01-24] MEDS ORDERED: LACRILUBE (AKWA TEARS) OPHTH OINT 3.5 GM As Ordered ONE (10:12)
[2020-01-24] MEDS ORDERED: fentaNYL 100 MCG/2 ML INJECTION (J3010) IV ONE (10:15)
[2020-01-24] MEDS ORDERED: MIDAZOLAM INJ 2MG/2ML VIAL (J2250 PER 1MG) IV ONE (10:15)
[2020-01-24] MEDS ORDERED: HYDROmorphone HCL 2 MG/ML 1ML VIAL (J1170) As Ordered ONE (10:39)
[2020-01-24] MEDS ORDERED: ACETAMINOPHEN 1000MG 100ML IV BTL (OFIRMEV) (J0131 PER 10MG) As Ordered ONE (13:15)
[2020-01-24] MEDS ORDERED: SUGAMMADEX SODIUM 500 MG/5 ML VIAL (BRIDION) As Ordered ONE (13:15)
--- NOTE | 2020-01-24 13:36 | REP ---
Left ankle: 12 views. History: Intraoperative imaging. Left ankle fracture. Comparison radiographs January 22, 2020. 1,000,058 seconds of fluoroscopy time is reported. Findings: A sequence 12 last image hold fluoroscopically obtained spot radiographs of the left ankle document open reduction internal fixation of distal tib-fib fractures. Electronically Signed by Royer Ortega MD 01/24/2020 01:28 P
[2020-01-24] MEDS ORDERED: traMADol 50 MG TAB PO PRN (14:15)
[2020-01-24] MEDS ORDERED: fentaNYL 100 MCG/2 ML INJECTION (J3010) IV PRN (14:15)
[2020-01-24] MEDS ORDERED: LR 1,000 ML IV SCH ×2 (14:15)
[2020-01-24] MEDS ORDERED: ONDANSETRON 4MG/2ML VIAL IV PRN (14:15)
[2020-01-24] MEDS ORDERED: oxyCODONE 5MG TAB PO PRN ×3 (14:15→14:30)
[2020-01-24 17:21] VITALS: BP 106/65
[2020-01-24 17:56] VITALS: BP 109/61
[2020-01-24 18:41] VITALS: BP 110/65
[2020-01-24 20:00] VITALS: BP 108/63
[2020-01-24 21:00] VITALS: BP 108/64
[2020-01-24] MEDS: CYCLOBENZAPRINE 5MG TABLET PO PRN (21:39)
[2020-01-24] MEDS: ACETAMINOPHEN 500 MG TAB PO SCH (21:39)
[2020-01-25 02:00] VITALS: BP 101/58
[2020-01-25] MEDS: ACETAMINOPHEN 500 MG TAB PO SCH ×2 (05:19→13:56)
[2020-01-25 06:00] VITALS: BP 101/59
[2020-01-25] MEDS ORDERED: TRAM50TA2 PO (06:50)
[2020-01-25] MEDS ORDERED: OXYC-517 PO (06:50)
[2020-01-25] MEDS ORDERED: LOVE1INJ SC (06:50)
[2020-01-25] MEDS: CYCLOBENZAPRINE 5MG TABLET PO PRN ×2 (08:44→14:22)
[2020-01-25] MEDS: ENOXAPARIN 40MG/0.4ML SYRINGE (J1650 PER 10MG) SC SCH ×2 (08:45→09:00)
[2020-01-25] MEDS ORDERED: XARE10TA PO (12:18)
--- NOTE | 2020-01-27 15:59 | RO ---
DATE OF PROCEDURE: 01/24/2020 PREOPERATIVE DIAGNOSIS: Left trimalleolar ankle fracture. POSTOPERATIVE DIAGNOSIS: Left trimalleolar ankle fracture. PROCEDURE: Open reduction and internal fixation left ankle. SURGEON: Leslie Moon MD CENTER MAKER HAND: None. ANESTHESIA: General endotracheal plus popliteal nerve block. ESTIMATED BLOOD LOSS (EBL): 100 mL. COMPLICATIONS: None. CONDITION: Stable to recovery. IMPLANTS: 4-hole 1/3 tubular plate with associated screws and a posterolateral distal fibula locking plate Synthes with associated 3.5-mm and 2.7-mm screws. INDICATIONS: Grecia Lainez is a 49-year-old female who sustained a mechanical fall resulting in a comminuted left trimalleolar ankle fracture. Given the unstable nature of her fracture, surgery was recommended. The risks and benefits of surgery were discussed with the patient in detail and included but are not limited to infection, damage to nerves and blood vessels, continued pain and stiffness, need for additional procedures. Informed consent was obtained. DESCRIPTION OF PROCEDURE: The patient was met in the preoperative holding area, where the left lower extremity was marked as the correct operative site. She was then taken to the operating room, where she underwent general anesthesia. She was placed in the prone position. Bony prominences were well padded. A well-padded tourniquet was placed in the left upper thigh. An official time-out was held, where the correct patient, operative site, and operative procedure were verified. She received antibiotics within 60 minutes prior to incision. The leg was then exsanguinated, and tourniquet was inflated to 275 mmHg. An incision was made in the posterolateral aspect of the ankle between the Achilles and the fibula. Careful dissection to the level of the peroneal fascia was performed. Peroneal fascia was incised. They were retracted anteriorly, and the flexor hallucis longus (FHL) was retracted laterally after incising the FHL fascia. The posterior malleolar fracture was identified. It did extend medially, but I was able to trace it as it coursed around the medial malleolus. A Hohmann retractor was used medially throughout the case to prevent any neurovascular soft tissue structures from being damaged. The fracture was reduced with a ball spike. A 3.5-mm lag screw was placed. X-rays on AP and lateral view were satisfactory. A 4-hole 1/3 tubular plate was then placed in a buttress fashion with associated screws. Following this, peroneal tendons were then retracted medially. The fracture was identified, and there was significant comminution. It was reduced using a pointed reduction clamp. A Synthes 4-hole posterolateral plate was selected. It was secured distally with 2.7 locking screws proximally with 3.5-mm screws. I was able to get one lag screw through a larger area of comminution, that was a 2.7 screw, to help hold this region of the fracture together. Final x-rays were performed in AP oblique and lateral view and were found to be satisfactory. I did feel over the anterior aspect of the fibula to check the screw lengths and did not feel any prominent screws. Copious irrigation was performed. The tourniquet was let down, and hemostasis was maintained. Subcutaneous tissues were closed with 2-0 Vicryl and 3-0 Vicryl. The skin was closed with 3-0 nylon. A sterile dressing and a well-padded splint were applied. The patient was extubated and transferred to the recovery room in stable condition. PLAN: The patient will be nonweightbearing for at least 6 weeks. I will see her in a week for a wound check. She will be on Lovenox for deep venous thrombosis (DVT) prophylaxis.
== END 2020-01-25 15:00 | disposition home or self-care (01) ==
LOC: M SDC 07:07 → M MS5PR 17:15 → M SDC 01-25 15:00
PROVIDERS: ATTEND Orthopaedic Surgery
DX: S82.852A Displaced trimalleolar fracture of left lower leg, initial encounter for closed fracture (principal); W19.XXXA Unspecified fall, initial encounter; Y92.89 Other specified places as the place of occurrence of the external cause; Y93.9 Activity, unspecified; Y99.9 Unspecified external cause status; K21.9 Gastro-esophageal reflux disease without esophagitis; M35.00 Sjogren syndrome, unspecified; F41.9 Anxiety disorder, unspecified; F32.9 Major depressive disorder, single episode, unspecified; Z79.899 Other long term (current) drug therapy; Z91.041 Radiographic dye allergy status; Z88.0 Allergy status to penicillin; Z88.2 Allergy status to sulfonamides; Z91.040 Latex allergy status; Z91.81 History of falling
CPT/HCPCS: 27822; 64447; 76000; C1713; J0131; J1100; J1170; J2250; J2405; J2795; J3010

== ENCOUNTER 2020-01-28 19:55 | Emergency (ER) | payer OTHER ==
[~2020-01-28] VITALS: Ht 170.2 cm; Wt 95.5 kg
[~2020-01-28 19:55] MED LIST changes: -CLINDAMYCIN 900 MG in IV 1 EA IV ONE; +LOVE1INJ SC; +OXYC-517 PO; +TRAM50TA2 PO; +XARE10TA PO
[2020-01-28] MEDS ORDERED: ELIQ2.5T (20:10)
[2020-01-28] MEDS ORDERED: NS 1,000 ML IV ONE (20:30)
[2020-01-28 20:44] LABS: BASO % 0.4 % (0.0-1.0); EOS # 0.1 10^3/uL (0.0-0.5); EOS % 0.9 % (0.0-3.0); HEMATOCRIT 36.4 % (36.0-47.0); HEMOGLOBIN 11.9 g/dl (12.0-15.5); LYMPH # 1.6 10^3/uL (1.5-5.0); LYMPH % 19.7 % (24.0-44.0); MEAN CORPUSCULAR HEMOGLOBIN 29.7 pg (27.0-33.0); MEAN CORPUSCULAR HGB CONC 32.7 g/dl (32.0-36.5); MEAN CORPUSCULAR VOLUME 90.8 fl (80.0-96.0); MONO # 0.6 10^3/uL (0.0-0.8); MONO % 7.2 % (0.0-5.0); NEUTROPHILS # 5.7 10^3/uL (1.5-8.5); NEUTROPHILS % 71.4 % (36.0-66.0); PLATELET COUNT, AUTOMATED 227 10^3/uL (150-450); RED BLOOD COUNT 4.01 10^6/uL (4.00-5.40); WHITE BLOOD COUNT 7.9 10^3/uL (4.0-10.0)
[2020-01-28 21:06] LABS: BLOOD UREA NITROGEN 16 MG/DL (7-18); CALCIUM LEVEL 9.6 MG/DL (8.5-10.1); CARBON DIOXIDE LEVEL 27 MEQ/L (21-32); CHLORIDE LEVEL 106 MEQ/L (98-107); CREATININE FOR GFR 0.88 MG/DL (0.55-1.30); GLOMERULAR FILTRATION RATE > 60.0 (>51); GLUCOSE, FASTING 94 MG/DL (70-100); POTASSIUM SERUM 3.7 MEQ/L (3.5-5.1); SODIUM LEVEL 139 MEQ/L (136-145)
[2020-01-28] MEDS ORDERED: ACET-683 PO (21:27)
[2020-01-28 21:44] LABS: APPEARANCE, URINE CLEAR (CLEAR); BACTERIA, URINE AUTO NEGATIVE (NEGATIVE); BILIRUBIN, URINE AUTO NEGATIVE (NEGATIVE); BLOOD, URINE BLOOD NEGATIVE (NEGATIVE); COLOR, URINE YELLOW (YELLOW); GLUCOSE, URINE (UA) AUTO NEGATIVE (NEGATIVE); KETONE, URINE AUTO TRACE mg/dL (NEGATIVE); LEUKOCYTE ESTERASE, URINE AUTO 2+ (NEGATIVE); NITRITE, URINE AUTO NEGATIVE (NEGATIVE); PROTEIN, URINE AUTO NEGATIVE (NEGATIVE); RBC, URINE AUTO 1 /HPF (0-3); SPECIFIC GRAVITY URINE AUTO 1.017 (1.002-1.035); SQUAMOUS EPITHELIAL CELL UR AU 2 /HPF (0-6); UROBILINOGEN, URINE AUTO 0.2 mg/dL (0.0-2.0); WBC, URINE AUTO 11 /HPF (0-3)
[2020-01-28] MEDS ORDERED: FOSFOMYCIN TROMETHAMINE 3 GM POWDER PACKET (MONUROL) PO ONE (22:00)
[2020-01-28] MEDS ORDERED: MACR100C43 PO (22:38)
[2020-01-28] MEDS ORDERED: NITROFURANTOIN (MACROBID) 100 MG CAP PO ONE (22:45)
[2020-01-28 23:00] VITALS: BP 119/83
--- NOTE | 2020-01-29 08:38 | REP ---
REASON: Pyrexia. FINDINGS: The technique utilized in obtaining the radiograph has magnified the cardiac silhouette and accentuated the interstitial markings. The superior mediastinal structures are midline. The cardiac silhouette is unremarkable in size, shape, and position. The diaphragmatic surfaces of the lungs are regular, and the costophrenic angles are clear. The pulmonary arias are clear. The imaged osseous structures are intact. IMPRESSION: There is no acute cardiopulmonary disease. Electronically Signed by Geronimo Hernandez DO 01/29/2020 01:13 P
== END 2020-01-28 23:40 | disposition home or self-care (01) ==
LOC: M ED 19:55
DX: N39.0 Urinary tract infection, site not specified (principal); K21.9 Gastro-esophageal reflux disease without esophagitis; Z79.01 Long term (current) use of anticoagulants; Z79.899 Other long term (current) drug therapy; Z86.718 Personal history of other venous thrombosis and embolism; Z88.0 Allergy status to penicillin; Z88.2 Allergy status to sulfonamides; Z91.048 Other nonmedicinal substance allergy status; Z91.040 Latex allergy status; Z91.041 Radiographic dye allergy status

== ENCOUNTER 2020-05-07 18:17 | Emergency (ER) | payer OTHER ==
[~2020-05-07] VITALS: Ht 170.2 cm; Wt 100.0 kg
[~2020-05-07 18:17] MED LIST changes: +ACET-683 PO; -ASPI81TA85 PO; +ASPI81TA86 PO; +ELIQ2.5T; +MACR100C43 PO; -PANT20TA2 PO; +PANT20TA6 PO; +PANT40TA29; -PANT40TA3
[2020-05-07] MEDS ORDERED: NAPR220C14 PO (18:44)
[2020-05-07] MEDS ORDERED: ASPI81CH33 PO (18:44)
--- NOTE | 2020-05-07 20:15 | REPVR ---
PROCEDURE INFORMATION: Exam: US Duplex Left Lower Extremity Veins, Limited Exam date and time: 05/07/2020 7:43 PM Age: 50 years old Clinical indication: Pain; Leg, lower; Left; Additional info: R/O dvt TECHNIQUE: Imaging protocol: Real-time Duplex ultrasound of the Left Lower Extremity with 2-D parham scale, color Doppler flow and spectral waveform analysis with image documentation. Limited exam focused on the left lower extremity veins. COMPARISON: No relevant prior studies available. FINDINGS: Left common femoral vein and left femoral vein demonstrate no intraluminal filling defect and normal Doppler flow. Left popliteal vein demonstrates eccentric linear echogenic material within the lumen, with Doppler flow around it, suggesting probable chronic or nonocclusive acute thrombus. No abnormal focal fluid collection. IMPRESSION: Chronic webbing or minimal eccentric nonocclusive acute clot within the left popliteal vein. No propagation into the femoral vein system Electronically signed by: Thierry Yap On 05/07/2020 20:15:22 PM
[2020-05-07 20:39] VITALS: BP 131/79
== END 2020-05-07 20:40 | disposition home or self-care (01) ==
LOC: M ED 18:17
DX: R60.0 Localized edema (principal); Z86.718 Personal history of other venous thrombosis and embolism; R51.9 Headache, unspecified; G47.30 Sleep apnea, unspecified; K21.9 Gastro-esophageal reflux disease without esophagitis; Z88.0 Allergy status to penicillin; Z88.2 Allergy status to sulfonamides; Z91.041 Radiographic dye allergy status; Z91.040 Latex allergy status; Z91.048 Other nonmedicinal substance allergy status; Z79.82 Long term (current) use of aspirin

== ENCOUNTER 2020-06-28 10:21 | Emergency (ER) | payer OTHER ==
[~2020-06-28] VITALS: Ht 170.2 cm; Wt 103.0 kg
[~2020-06-28 10:21] MED LIST changes: +ASPI81CH33 PO; +CYAN500T14 PO; -CYAN500T8 PO; +NAPR220C14 PO
[2020-06-28] MEDS ORDERED: PANT20TA6 (11:20)
[2020-06-28] MEDS ORDERED: NS 1,000 ML IV ONE (11:45)
[2020-06-28] MEDS ORDERED: PANTOPRAZOLE 40MG VIAL (C9113 PER 1) IV ONE (11:45)
[2020-06-28] MEDS ORDERED: KETOROLAC 30 MG/ML 1ML VIAL IV ONE (11:45)
[2020-06-28] MEDS ORDERED: ONDANSETRON 4MG/2ML VIAL IV ONE (11:45)
[2020-06-28 13:05] LABS: BASO % 0.4 % (0.0-1.0); EOS % 0.2 % (0.0-3.0); HEMATOCRIT 41.6 % (36.0-47.0); HEMOGLOBIN 13.3 g/dl (12.0-15.5); LYMPH % 19.8 % (24.0-44.0); MEAN CORPUSCULAR HEMOGLOBIN 28.2 pg (27.0-33.0); MEAN CORPUSCULAR VOLUME 88.3 fl (80.0-96.0); MONO # 0.3 10^3/uL (0.0-0.8); MONO % 4.8 % (0.0-5.0); NEUTROPHILS # 3.9 10^3/uL (1.5-8.5); NEUTROPHILS % 74.4 % (36.0-66.0); PLATELET COUNT, AUTOMATED 188 10^3/uL (150-450); RED BLOOD COUNT 4.71 10^6/uL (4.00-5.40); WHITE BLOOD COUNT 5.3 10^3/uL (4.0-10.0)
[2020-06-28 13:36] LABS: ALT/SGPT 98 U/L (12-78); BILIRUBIN,DIRECT < 0.1 MG/DL (0.0-0.2); BILIRUBIN,TOTAL 0.4 MG/DL (0.2-1.0); BLOOD UREA NITROGEN 14 MG/DL (7-18); CALCIUM LEVEL 9.4 MG/DL (8.5-10.1); CARBON DIOXIDE LEVEL 29 MEQ/L (21-32); CHLORIDE LEVEL 106 MEQ/L (98-107); GLOMERULAR FILTRATION RATE > 60.0 (>51); GLUCOSE, FASTING 114 MG/DL (70-100); LIPASE 219 U/L (73-393); POTASSIUM SERUM 3.9 MEQ/L (3.5-5.1); SODIUM LEVEL 139 MEQ/L (136-145); TOTAL PROTEIN 8.5 GM/DL (6.4-8.2)
[2020-06-28] MEDS ORDERED: ZOFR4TAB16 PO (13:52)
[2020-06-28 15:04] VITALS: BP 137/97
== END 2020-06-28 15:06 | disposition home or self-care (01) ==
LOC: M ED 10:21
DX: R11.2 Nausea with vomiting, unspecified (principal); B34.9 Viral infection, unspecified; R10.9 Unspecified abdominal pain; Z20.828 Contact with and (suspected) exposure to other viral communicable diseases; K21.9 Gastro-esophageal reflux disease without esophagitis; Z79.899 Other long term (current) drug therapy
CPT/HCPCS: 80048; 80076; 81001; 83690; 85025; 96361; 96374; 96375; 99284; C9113; J1885; J2405; U0003

== ENCOUNTER → 2020-09-09 | Outpatient (CLI) | payer OTHER ==
[~2020-09-09] MED LIST changes: -BUPR150T3; +BUPR150T4; +PANT20TA6; +ZOFR4TAB16 PO
[2020-09-09 18:25] LABS: ALBUMIN 4.1 GM/DL (3.2-5.2); ALT/SGPT 113 U/L (12-78); BILIRUBIN,TOTAL 0.3 MG/DL (0.2-1.0); BLOOD UREA NITROGEN 14 MG/DL (7-18); C REACTIVE PROTEIN QUANTITATIV 0.89 MG/DL (0.00-0.30); CALCIUM LEVEL 9.2 MG/DL (8.5-10.1); CARBON DIOXIDE LEVEL 31 MEQ/L (21-32); CHLORIDE LEVEL 105 MEQ/L (98-107); COMPLEMENT C3 150 MG/DL (90-180); COMPLEMENT C4 25 MG/DL (10-40); CREATININE FOR GFR 0.92 MG/DL (0.55-1.30); GLOMERULAR FILTRATION RATE > 60.0 (>51); GLUCOSE, FASTING 126 MG/DL (70-100); SODIUM LEVEL 142 MEQ/L (136-145); TOTAL PROTEIN 7.8 GM/DL (6.4-8.2)
[2020-09-09 18:26] LABS: CREATININE,RANDOM URINE 98.4 MG/DL; TOTAL PROTEIN,RANDOM URINE 7.7 MG/DL (0.0-12.0)
[2020-09-09 18:46] LABS: BASO % 0.6 % (0.0-1.0); EOS # 0.2 10^3/uL (0.0-0.5); EOS % 2.8 % (0.0-3.0); HEMATOCRIT 41.1 % (36.0-47.0); HEMOGLOBIN 12.9 g/dl (12.0-15.5); LYMPH # 1.8 10^3/uL (1.5-5.0); LYMPH % 33.7 % (24.0-44.0); MEAN CORPUSCULAR HEMOGLOBIN 28.2 pg (27.0-33.0); MEAN CORPUSCULAR HGB CONC 31.4 g/dl (32.0-36.5); MEAN CORPUSCULAR VOLUME 89.7 fl (80.0-96.0); MONO # 0.4 10^3/uL (0.0-0.8); MONO % 8.2 % (0.0-8.0); NEUTROPHILS # 2.9 10^3/uL (1.5-8.5); NEUTROPHILS % 54.5 % (36.0-66.0); PLATELET COUNT, AUTOMATED 171 10^3/uL (150-450); RED BLOOD COUNT 4.58 10^6/uL (4.00-5.40); WHITE BLOOD COUNT 5.4 10^3/uL (4.0-10.0)
[2020-09-09 20:46] LABS: ERYTHROCYTE SEDIMENTATION RATE 37 mm/hr (0-30)
== END ==
LOC: M LAB 16:10
PROVIDERS: ATTEND Internal Medicine
DX: M35.01 Sjogren syndrome with keratoconjunctivitis (principal)

== ENCOUNTER 2020-12-17 22:18 | Observation (INO) | payer OTHER ==
[~2020-12-17] VITALS: Ht 170.2 cm; Wt 112.5 kg
[~2020-12-17 22:18] MED LIST changes: +BUPR150T12; -BUPR150T4
[2020-12-17] MEDS ORDERED: DOXY75CA3 PO (22:28)
[2020-12-17 22:52] LABS: BASO % 0.5 % (0.0-1.0); EOS # 0.1 10^3/uL (0.0-0.5); EOS % 2.1 % (0.0-3.0); HEMATOCRIT 37.8 % (36.0-47.0); HEMOGLOBIN 12.5 g/dl (12.0-15.5); LYMPH # 1.9 10^3/uL (1.5-5.0); LYMPH % 33.5 % (24.0-44.0); MEAN CORPUSCULAR HEMOGLOBIN 29.3 pg (27.0-33.0); MEAN CORPUSCULAR HGB CONC 33.1 g/dl (32.0-36.5); MEAN CORPUSCULAR VOLUME 88.7 fl (80.0-96.0); MONO # 0.5 10^3/uL (0.0-0.8); MONO % 8.5 % (2.0-8.0); NEUTROPHILS # 3.1 10^3/uL (1.5-8.5); NEUTROPHILS % 55.2 % (36.0-66.0); PLATELET COUNT, AUTOMATED 183 10^3/uL (150-450); RED BLOOD COUNT 4.26 10^6/uL (4.00-5.40); WHITE BLOOD COUNT 5.6 10^3/uL (4.0-10.0)
[2020-12-17 23:16] LABS: INR 0.91; PROTHROMBIN TIME 12.4 SECONDS (12.5-14.3)
[2020-12-17 23:23] LABS: ALBUMIN 3.7 GM/DL (3.2-5.2); ALT/SGPT 113 U/L (12-78); BILIRUBIN,DIRECT 0.1 MG/DL (0.0-0.2); BILIRUBIN,TOTAL 0.3 MG/DL (0.2-1.0); BLOOD UREA NITROGEN 14 MG/DL (7-18); CALCIUM LEVEL 9.5 MG/DL (8.5-10.1); CARBON DIOXIDE LEVEL 27 MEQ/L (21-32); CHLORIDE LEVEL 106 MEQ/L (98-107); CK-MB VALUE MASS 1.7 NG/ML (<3.6); CPK CREATINE PHOSPHOKINASE 144 U/L (26-192); GLOMERULAR FILTRATION RATE > 60.0 (>51); GLUCOSE, FASTING 132 MG/DL (70-100); LIPASE 274 U/L (73-393); MB/CK RELATIVE INDEX 1.18 (< OR =4); SODIUM LEVEL 141 MEQ/L (136-145); TOTAL PROTEIN 7.3 GM/DL (6.4-8.2); TROPONIN I < 0.02 NG/ML (< 0.10)
--- NOTE | 2020-12-17 23:28 | REPVR ---
PROCEDURE INFORMATION: Exam: XR Chest Exam date and time: 12/17/2020 10:56 PM Age: 50 years old Clinical indication: Pain; Chest pressure; Additional info: Chest pain TECHNIQUE: Imaging protocol: XR of the chest. Views: 1 view. COMPARISON: CR Chest, 1 view 01/28/2020 8:31 PM FINDINGS: Lungs: Degree of lung inflation is normal. No evidence of pulmonary edema. No focal consolidation or parenchymal lung mass. Pleural spaces: No pleural effusion or pneumothorax. Heart/Mediastinum: Cardiac silhouette appears normal. No adenopathy or hilar mass. Bones/joints: Osseous structures show no concerning abnormality. IMPRESSION: No acute or focal cardiopulmonary process. Electronically signed by: Thierry Yap On 12/17/2020 23:28:42 PM
[2020-12-17] MEDS ORDERED: ASPIRIN 81 MG CHEW TABLET PO ONE (23:50)
[2020-12-18 00:06] LABS: D-DIMER QUANT 532.78 ng/ml (<500)
[2020-12-18] MEDS ORDERED: ASPIRIN 81 MG CHEW TABLET PO ONE (00:15)
[2020-12-18] MEDS ORDERED: ASPIRIN 325 MG TAB PO ONE (00:25)
--- NOTE | 2020-12-18 00:55 | REPVR ---
PROCEDURE INFORMATION: Exam: US Duplex Lower Extremity Veins, Bilateral Exam date and time: 12/17/2020 12:32 AM Age: 50 years old Clinical indication: Pain; Leg, lower; Bilateral; Additional info: Leg pain R/O dvt TECHNIQUE: Imaging protocol: Real-time duplex ultrasound of the extremities with 2-D parham scale, color Doppler flow and spectral waveform analysis with image documentation. Complete exam focused on the bilateral lower extremity veins. COMPARISON: US Duplex, Ext,LOWER veins,unilat LEFT 05/07/2020 7:27 PM FINDINGS: Right deep veins: Common femoral, femoral, proximal profunda femoral and popliteal veins are patent without thrombus. Normal Doppler waveforms. Normal compressibility and/or augmentation response. Right superficial veins: Saphenofemoral junction is patent without thrombus. Left deep veins: Common femoral, femoral, proximal profunda femoral and popliteal veins are patent without thrombus. Normal Doppler waveforms. Normal compressibility and/or augmentation response. Left superficial veins: Saphenofemoral junction is patent without thrombus. Soft tissues: No abnormal focal fluid collection. IMPRESSION: No evidence of deep vein thrombosis. Electronically signed by: Thierry Yap On 12/18/2020 00:54:51 AM
[2020-12-18] MEDS ORDERED: ONDA-195 PO (02:18)
[2020-12-18] MEDS ORDERED: REFROIN OU (02:18)
[2020-12-18] MEDS ORDERED: ASPI-161 PO (02:18)
[2020-12-18] MEDS ORDERED: SYNT25TA PO (02:18)
[2020-12-18] MEDS ORDERED: BIOTLIQ3 MT (02:18)
[2020-12-18] MEDS ORDERED: PANT20TA6 PO (02:18)
[2020-12-18] MEDS ORDERED: MULTCHW12 PO (02:18)
[2020-12-18] MEDS ORDERED: HM S0.65 (02:18)
[2020-12-18] MEDS ORDERED: ALEV220T22 PO (02:18)
[2020-12-18] MEDS ORDERED: CALM GUMMIES PO (02:18)
[2020-12-18] MEDS ORDERED: DOXY20TA4 PO (02:18)
[2020-12-18] MEDS ORDERED: hydrALAZINE 20MG/ML 1ML VIAL (J0360 PER 20MG) IV STA (02:32)
--- NOTE | 2020-12-18 02:37 | HPEPDOC ---
[facility] Medical History & Physical Date of Admission December 18, 2020 Date of Service: December 18, 2020 History and Physical CHIEF COMPLAINT: chest wall pain HISTORY OF PRESENT ILLNESS: 50 yo F with a PMHx of Sjogren's Syndrome, fib romyalgia, hx of DVT of LLE, depression, anxiety, unspecified hypoercoagulability disorder (unable to take hormonal control per patient), presented to the ER with new onset chest pain this evening at approximately 9:30 pm (on 12/17/20). She states that the pain is an ache, approx 5/10, localized to the R of the sternum in the 2nd and 3rd intercostal spaces, it is worse on palpation and is not associated with inspiration. Patient's ekg showed Q waves in lead III, no other ST changes. Initial troponin < 0.02. D dimer elevated at 520. Unable to perform CT angiogram to r/o PE due to hx of jonnie phylaxis from IV contrast. Bilateral LE venous duplex showed no evidence for DVT. PAST MEDICAL HISTORY: ELEVATED LIVER ENZYMES KIDNEY STONE ALLERGY TO PEANUTS AND NUTASWEET AND WHEAT GERD SJOGREN SYNDROME RAYNAUD'S SLEEP APNEA DEPRESSION ANXIETY LLE DVT PAST SURGICAL HISTORY: 1987 HYSTERECTOMY 2010 LIVER BIOPSY 2014 LEFT LOWER LEG REPAIR 12/2019 (trimaleolar ankle fx) SOCIAL HISTORY: Patient denies smoking Patient denies etoh use Patient denies illicit drug use FAMILY HISTORY: FATHER: 53 YRS, BRAIN CANCER MOTHER: ALIVE, BREAST MASS REMOVED NON CANCER SIBLINGS: ALIVE, 1 BROTHER GERD SON(S): GERD, HTN 1 BROTHER(S) . 1 SON(S) . NO KNOWN FAMILY HISTORY OF ANY UROLOGICALLY RELATED DISEASES/CANCERS. HX OF MELANOMA IN FAMILY. NO HX OF PANCREATIC CANCER IN FAMILY.FATHER- BRAIN TUMORS. ALLERGIES: Please see below. REVIEW OF SYSTEMS: 10 point ROS completed, relevant findings are noted in the HPI. HOME MEDICATIONS: Please see below. PHYSICAL EXAMINATION: VITAL SIGNS: please see below General: NAD, comfortable HEENT: PERRLA, EOMI, sclerae clear Neck: supple, normal ROM, no JVD Respiratory: lungs CTAB, no wheeze, no rales, no crackles CVS: RRR, normal S1, S2, no murmurs Abdo: soft, no masses, no hepatosplenomegaly, BS+, no rebound tenderness Extremities: no edema, pulses 2+ MSK: no joint deformities, normal ROM. Chest wall tender to palpation to R of sternum at 2nd/3rd intercostal space. Neuro: no focal neuro deficits, moving all 4 extremities, CN2-12 intact. Strength 5/5 in all 4 extremities. No nystagmus. Psych: calm, cooperative, AAO x 3 LABORATORY DATA: See below. IMAGING: Bilateral venous duplex (12/17/20): No evidence of deep vein thrombosis. CXR (12/17/20): No acute or focal cardiopulmonary process. MICROBIOLOGY: Please see below. ASSESSMENT: 50 yo F with a PMHx of Sjogren's Syndrome, fibromyalgia, hx of DVT of LLE, depression, anxiety, unspecified hypoercoagulability disorder (unable to take hormonal control per patient), presented to the ER with new onset chest pain this evening at approximately 9:30 pm (on 12/17/20). She states that the pain is an ache, approx 5/10, localized to the R of the sternum in the 2nd and 3rd intercostal spaces, it is worse on palpation and is not associated with inspiration. Patient's ekg showed Q waves in lead III, no other ST changes. Initial troponin < 0.02. D dimer elevated at 520. Unable to perform CT angiogram to r/o PE due to hx of anaphylaxis from IV conrast. Bilateral LE venous duplex showed no evidence for DVT. Patient will be admitted for observation to obtain V/Q Study for probability of PE. PLAN: Chest pain possible 2/2 ACS vs PE vs costochondritis - initial trop < 0.02, EKG not showing acute ischemic changes - will cycle trop and EKGs q6h - obtain V/Q scan in am - discussed with patient, given possible hypercoagulability disorder, prior DVT, tachycardia amounting to a moderate Well's score for PE, will given a dose of therapeutic lovenox, and DC if low risk probability for PE on V/Q study. Sjogrens/Raynauds - follows with rheumatology - presently does not take plaquenil Hx of hypercoagulable syndrome - patient is unsure - takes daily ASA - check antiphospholipid and factor V leiden HTN - takes no medications - BP elevated in the ER, given 10 mg IV hydralazine - start HCTZ 12.5 mg daily Hx of hypothyroidism - resume home levothyroxine 25 mcg daily GERD - resume PPI Transaminitis - AST and ALT mildly elevated - patient reports hx of liver bx Dispo: pending clinical progress. Vital Signs Vital Signs Date Time Temp Pulse Resp B/P (MAP) Pulse Ox O2 Delivery O2 Flow Rate FiO2 12/18/20 01:45 79 16 151/93 (112) 97 Room Air 12/17/20 22:19 98.4 Laboratory Data Labs 24H Laboratory Tests 2 12/17/20 22:44: Immature Granulocyte % (Auto) 0.2, Neutrophils (%) (Auto) 55.2, Lymphocytes (%) (Auto) 33.5, Monocytes (%) (Auto) 8.5H, Eosinophils (%) (Auto) 2.1, Basophils (%) (Auto) 0.5, Neutrophils # (Auto) 3.1, Lymphocytes # (Auto) 1.9, Monocytes # (Auto) 0.5, Eosinophils # (Auto) 0.1, Basophils # (Auto) 0.0, Nucleated Red Blood Cells % (auto) 0.0, Prothrombin Time 12.4, Prothromb Time International Ratio 0.91, D-Dimer, Quantitative 532.78H, Anion Gap 8, Glomerular Filtration Rate > 60.0, Calcium Level 9.5, Total Bilirubin 0.3, Direct Bilirubin 0.1, Aspartate Amino Transf (AST/SGOT) 68H, Alanine Aminotransferase (ALT/SGPT) 113H, Alkaline Phosphatase 89, Total Creatine Kinase 144, Creatine Kinase MB 1.7, Creatine Kinase MB Relative Index 1.18, Troponin I < 0.02, Total Protein 7.3, Albumin 3.7, Albumin/Globulin Ratio 1.0L, Lipase 274 CBC/BMP Laboratory Tests 12/17/20 22:44 Home Medications Scheduled Aspirin (Aspirin EC) 81 Mg Tablet.dr, 81 MG PO DAILY Doxycycline Hyclate (Doxycycline Hyclate) 20 Mg Tablet, 20 MG PO BID Folic Acid/Multivit-Min/Lutein (Multi-Vitamin Gummies) 1 Each Tab.chew, 2 CHW PO DAILY Levothyroxine Sodium (Synthroid) 25 Mcg Tablet, 25 MCG PO DAILY Mineral Oil/Petrolatum,White (Refresh P.m. Ointment) 3.5 Gm Oint...g., 1 DOSE OU QHS Pantoprazole Sodium (Pantoprazole Sodium) 20 Mg Tablet.dr, 20 MG PO BID Saliva Substitute Combo No.9 (Biotene) 473 Ml Mouthwash, 1 DOSE MT BID [Calm Gummies] , 1 CHEW PO BID Scheduled PRN Naproxen Sodium (Aleve) 220 Mg Tablet, 220 MG PO BID PRN for PAIN Ondansetron HCl (Ondansetron HCl) 4 Mg Tablet, 4 MG PO QID PRN for NAUSEA Sodium Chloride (Saline Nasal Stringer) 44 Ml Stringer, 1 SPRAY NA QID PRN for NASAL DRYNESS Allergies Coded Allergies: Contrast Media (Verified Allergy, Severe, THROAT CLOSES UP, 09/23/16) Penicillins (Verified Allergy, Severe, anaphylaxis, 01/22/20) aspartame (Verified Allergy, Severe, ANAPHYLAXIS, 12/18/20) Sulfa (Sulfonamide Antibiotics) (Verified Allergy, Intermediate, hives, 01/22/20) latex (Verified Allergy, Intermediate, blisters, 01/23/20) TAPE (Verified Allergy, Mild, BANDAIDS - BLISTERS, 09/24/17) Uncoded Allergies: COVID SHOT PFIZER (Allergy, Severe, ANAPHYLAXIS, 12/17/20) A-FIB/CHADSVASC A-FIB History Current/History of A-Fib/PAF?: No CAROL CHIANG MD December 18, 2020 02:37
[2020-12-18] MEDS ORDERED: ENOXAPARIN 120MG/0.8ML SYRINGE (J1650 PER 10MG) SC SCH (03:00)
[2020-12-18 03:05] LABS: RSV AMPLIFICATION NEGATIVE (NEGATIVE)
[2020-12-18] MEDS ORDERED: ACETAMINOPHEN TAB 650MG DOSE (2X325MG) PO PRN (03:05)
[2020-12-18] MEDS ORDERED: MAALOX 30 ML SUSP *UDC PO PRN (03:05)
[2020-12-18] MEDS ORDERED: MOM 30ML SUSPENSION UDC PO PRN (03:05)
[2020-12-18 04:30] VITALS: BP 118/73
--- NOTE | 2020-12-18 05:39 | ECGEPIP ---
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
[2020-12-18] MEDS ORDERED: LEVOTHYROXINE 25MCG TABLET (0.025MG) PO SCH (06:00)
[2020-12-18 06:55] LABS: BASO % 0.4 % (0.0-1.0); EOS % 0.7 % (0.0-3.0); HEMATOCRIT 38.1 % (36.0-47.0); HEMOGLOBIN 12.5 g/dl (12.0-15.5); LYMPH # 1.5 10^3/uL (1.5-5.0); LYMPH % 26.9 % (24.0-44.0); MEAN CORPUSCULAR HEMOGLOBIN 29.3 pg (27.0-33.0); MEAN CORPUSCULAR HGB CONC 32.8 g/dl (32.0-36.5); MEAN CORPUSCULAR VOLUME 89.2 fl (80.0-96.0); MONO # 0.4 10^3/uL (0.0-0.8); MONO % 7.4 % (2.0-8.0); NEUTROPHILS # 3.6 10^3/uL (1.5-8.5); NEUTROPHILS % 64.4 % (36.0-66.0); PLATELET COUNT, AUTOMATED 187 10^3/uL (150-450); RED BLOOD COUNT 4.27 10^6/uL (4.00-5.40); WHITE BLOOD COUNT 5.5 10^3/uL (4.0-10.0)
[2020-12-18 07:23] LABS: ALBUMIN 3.7 GM/DL (3.2-5.2); ALT/SGPT 105 U/L (12-78); BILIRUBIN,TOTAL 0.3 MG/DL (0.2-1.0); BLOOD UREA NITROGEN 13 MG/DL (7-18); CALCIUM LEVEL 9.5 MG/DL (8.5-10.1); CARBON DIOXIDE LEVEL 27 MEQ/L (21-32); CHLORIDE LEVEL 109 MEQ/L (98-107); CREATININE FOR GFR 0.76 MG/DL (0.55-1.30); GLOMERULAR FILTRATION RATE > 60.0 (>51); GLUCOSE, FASTING 115 MG/DL (70-100); MAGNESIUM LEVEL 2.3 MG/DL (1.8-2.4); POTASSIUM SERUM 4.1 MEQ/L (3.5-5.1); SODIUM LEVEL 142 MEQ/L (136-145); TOTAL PROTEIN 7.3 GM/DL (6.4-8.2); TROPONIN I < 0.02 NG/ML (< 0.10)
[2020-12-18 08:00] VITALS: BP 125/75
[2020-12-18] MEDS ORDERED: hydroCHLOROthiazide 12.5 MG CAPSULE PO SCH (09:00)
[2020-12-18] MEDS ORDERED: ASPIRIN 81MG ENTERIC TABLET PO SCH (09:00)
[2020-12-18] MEDS ORDERED: DOCUSATE SODIUM 100MG CAPSULE PO SCH (09:00)
[2020-12-18] MEDS ORDERED: PANTOPRAZOLE 20 MG TAB PO SCH (09:00)
--- NOTE | 2020-12-18 16:43 | DS.PDOC ---
Discharge Summary General Date of Admission December 17, 2020 at 22:19 Date of Discharge 12/18/20 Attending Physician: GARCIA ADAN MD Discharge Summary PROCEDURES PERFORMED DURING STAY: [None]. ADMITTING DIAGNOSES: 1. Chest Pain 2. Elevated D-dimer DISCHARGE DIAGNOSES: 1. Atypical Chest pain likely 2/2 musculoskeletal origin 2. Elevated D-dimer COMPLICATIONS/CHIEF COMPLAINT: Chest Pain,Elevated D-Dimer. HISTORY OF PRESENT ILLNESS: Patient is a 50 year old female with a past medical history significant for Sjogren's Syndrome, fibromyalgia, depression/anxiety, and history of DVT of the LLE who presented to the [facility] ER with a complaint of aching in her right leg and chest pain. Patient stated that the leg aching had started suddenly and resolved. She denied any discoloration of her leg or swelling. Regarding her chest pain the patient stated that the pain was located in her sternum and was sharp. The pain was reproducible. On presentation to the ED the patient was vitally stable. She was not hypoxic or tachycardic. A D-dimer was ordered which was mildly elevated at 520. The patient was then planned for a CTA of the chest. She was unable to receive a CTA as she had reported a history of allergy to IV contrast. The patient was then admitted to hospitalist service for evaluation and management HOSPITAL COURSE: On inpatient evaluation the patient denied any worsening of her symptoms. She denied any recent travel, immobilization, or fractures/surgery. She was not tachycardic and there were no reported events on telemetry overnight. She was not hypoxic nor did she have pain on deep inspiration. She had point tenderness on her sternum. An U/S of the bilateral lower extremities was negative for any DVT. Additionally, her previous DVT in the left lower extremities was provoked from an orthopedic surgery. The patient was felt to be overall low risk for a DVT or PE at this current time. A V/Q scan had been ordered on admission however this was cancelled as the probability of a PE is low and a V/Q scan would likely result indeterminant. The cause of her elevated D-dimer is likely related to her obesity. The patient was then discharged with recommendations to follow-up with her PCP in 7-10 days MEDICAL CONDITIONS ADDRESSED: Chest pain 2/2 musculoskeletal less likley PE or ACS -Troponin on admission < 0.02. EKG without ischemic changes. -Patient not hypoxic or short of breath -D-dimer minimally elevated at 520 likely related to obesity -Patient overall low risk of PE. -Likely costochondritis. Patient recommended conservative management -Follow-up with PCP History of DVT -Previous DVT was provoked. No history of Factor V leiden mutation or Antiphospholipid disorder Elevated BP -Patient had elevated BP in ED. No formal diagnosis of hypertension. -BP not elevated at discharge -Patient recommended to follow-up with PCP. Given obesity she likely has MIN and should be screened for HTN and secondary causes of HTN HX of Hypothyroidism -Continued on Levothyroxine GERD -Continue PPI Transaminitis -Mild elevation of transaminases. Likely fatty liver/MARTINEZ. Patient reportedly had a liver biopsy in the past. She was recommended to follow-up with her PCP in regards to this Obesity -Complicates care. Likely contributes to a higher baseline D-dimer. -Patient may benefit from Ozempic for weight-loss outpatient DISCHARGE MEDICATIONS: Please see below. ALLERGIES: Please see below. PHYSICAL EXAMINATION ON DISCHARGE: VITAL SIGNS: Please see below. GENERAL: Awake, alert, and oriented. Appear in no acute distress. Lying comfortably in bed HEENT: Atraumatic, normocephalic. Eyes are nonicteric. Trachea is midline. Mucous membranes are pink and moist NECK: No palpable cervical, axillary, or supraclavicular lymphadenopathy CARDIOVASCULAR EXAMINATION: Normal S1, S2. Regular rate and rhythm. No clicks, rubs or murmurs. Point tenderness in midsternum RESPIRATORY EXAMINATION: Clear vesicular breath sounds bilaterally. No wheezes, rhonchi or rales. Symmetric chest expansion. no wheezes, rhonchi, or rales ABDOMINAL EXAMINATION: Obese. Soft, nondistended. Nontender. Normoactive bowel sounds EXTREMITIES: No edema. Full and equal pulses in bilateral upper and lower extremities SKIN: No rashes or lesions NEUROLOGICAL EXAMINATION: No focal neurological deficits PSYCHIATRIC EXAMINATION: Mood and affect appear appropriate LABORATORY DATA: Please see below. IMAGING: PROCEDURE INFORMATION: Exam: XR Chest Exam date and time: 12/17/2020 10:56 PM Age: 50 years old Clinical indication: Pain; Chest pressure; Additional info: Chest pain TECHNIQUE: Imaging protocol: XR of the chest. Views: 1 view. COMPARISON: CR Chest, 1 view 01/28/2020 8:31 PM FINDINGS: Lungs: Degree of lung inflation is normal. No evidence of pulmonary edema. No focal consolidation or parenchymal lung mass. Pleural spaces: No pleural effusion or pneumothorax. Heart/Mediastinum: Cardiac silhouette appears normal. No adenopathy or hilar mass. Bones/joints: Osseous structures show no concerning abnormality. IMPRESSION: No acute or focal cardiopulmonary process. Electronically signed by: Thierry Yap On 12/17/2020 23:28:42 PM DD: THIERRY YAP MD 12/17/20 0916 PROCEDURE INFORMATION: Exam: US Duplex Lower Extremity Veins, Bilateral Exam date and time: 12/17/2020 12:32 AM Age: 50 years old Clinical indication: Pain; Leg, lower; Bilateral; Additional info: Leg pain R/O dvt TECHNIQUE: Imaging protocol: Real-time duplex ultrasound of the extremities with 2-D parham scale, color Doppler flow and spectral waveform analysis with image documentation. Complete exam focused on the bilateral lower extremity veins. COMPARISON: US Duplex, Ext,LOWER veins,unilat LEFT 05/07/2020 7:27 PM FINDINGS: Right deep veins: Common femoral, femoral, proximal profunda femoral and popliteal veins are patent without thrombus. Normal Doppler waveforms. Normal compressibility and/or augmentation response. Right superficial veins: Saphenofemoral junction is patent without thrombus. Left deep veins: Common femoral, femoral, proximal profunda femoral and popliteal veins are patent without thrombus. Normal Doppler waveforms. Normal compressibility and/or augmentation response. Left superficial veins: Saphenofemoral junction is patent without thrombus. Soft tissues: No abnormal focal fluid collection. IMPRESSION: No evidence of deep vein thrombosis. Electronically signed by: Thierry Yap On 12/18/2020 00:54:51 AM PROGNOSIS: GOOD ACTIVITY: [As tolerated]. DIET: As tolerated DISCHARGE PLAN: Patient is to be discharged home with follow-up with PCP in 7-10 days DISPOSITION: 01 Home, Self-Care. DISCHARGE CONDITION: [Stable]. TIME SPENT ON DISCHARGE: Greater than 35 minutes. Vital Signs/I&Os Vital Signs Date Time Temp Pulse Resp B/P (MAP) Pulse Ox O2 Delivery O2 Flow Rate FiO2 12/18/20 08:00 96.9 81 18 125/75 (92) 98 Room Air I&O- Last 24 Hours up to 6 AM 12/18/20 06:00 Output Total 100 ml Balance -100 ml Laboratory Data Labs 24H Laboratory Tests 2 12/17/20 22:44: Immature Granulocyte % (Auto) 0.2, Neutrophils (%) (Auto) 55.2, Lymphocytes (%) (Auto) 33.5, Monocytes (%) (Auto) 8.5H, Eosinophils (%) (Auto) 2.1, Basophils (%) (Auto) 0.5, Neutrophils # (Auto) 3.1, Lymphocytes # (Auto) 1.9, Monocytes # (Auto) 0.5, Eosinophils # (Auto) 0.1, Basophils # (Auto) 0.0, Nucleated Red Blood Cells % (auto) 0.0, Prothrombin Time 12.4, Prothromb Time International Ratio 0.91, D-Dimer, Quantitative 532.78H, Anion Gap 8, Glomerular Filtration Rate > 60.0, Calcium Level 9.5, Total Bilirubin 0.3, Direct Bilirubin 0.1, Aspartate Amino Transf (AST/SGOT) 68H, Alanine Aminotransferase (ALT/SGPT) 113H, Alkaline Phosphatase 89, Total Creatine Kinase 144, Creatine Kinase MB 1.7, Creatine Kinase MB Relative Index 1.18, Troponin I < 0.02, Total Protein 7.3, Albumin 3.7, Albumin/Globulin Ratio 1.0L, Lipase 274 12/18/20 02:00: Coronavirus (COVID-19)(PCR) NEGATIVE, Influenza Type A (RT-PCR) NEGATIVE, Influenza Type B (RT-PCR) NEGATIVE, Respiratory Syncytial Virus (PCR) NEGATIVE 12/18/20 04:01: Troponin I < 0.02 12/18/20 06:36: Immature Granulocyte % (Auto) 0.2, Neutrophils (%) (Auto) 64.4, Lymphocytes (%) (Auto) 26.9, Monocytes (%) (Auto) 7.4, Eosinophils (%) (Auto) 0.7, Basophils (%) (Auto) 0.4, Neutrophils # (Auto) 3.6, Lymphocytes # (Auto) 1.5, Monocytes # (Auto) 0.4, Eosinophils # (Auto) 0.0, Basophils # (Auto) 0.0, Nucleated Red Blood Cells % (auto) 0.0, Anion Gap 6L, Glomerular Filtration Rate > 60.0, Calcium Level 9.5, Total Bilirubin 0.3, Aspartate Amino Transf (AST/SGOT) 53H, Alanine Aminotransferase (ALT/SGPT) 105H, Alkaline Phosphatase 79, Troponin I < 0.02, Total Protein 7.3, Albumin 3.7, Albumin/Globulin Ratio 1.0L, Magnesium Level 2.3 CBC/BMP Laboratory Tests 12/17/20 22:44 12/18/20 06:36 Discharge Medications Scheduled Aspirin (Aspirin EC) 81 Mg Tablet.dr, 81 MG PO DAILY, (Reported) Doxycycline Hyclate (Doxycycline Hyclate) 20 Mg Tablet, 20 MG PO BID, (Reported) Folic Acid/Multivit-Min/Lutein (Multi-Vitamin Gummies) 1 Each Tab.chew, 2 CHW PO DAILY, (Reported) Levothyroxine Sodium (Synthroid) 25 Mcg Tablet, 25 MCG PO DAILY, (Reported) Mineral Oil/Petrolatum,White (Refresh P.m. Ointment) 3.5 Gm Oint...g., 1 DOSE OU QHS, (Reported) Pantoprazole Sodium (Pantoprazole Sodium) 20 Mg Tablet.dr, 20 MG PO BID, (Reported) Saliva Substitute Combo No.9 (Biotene) 473 Ml Mouthwash, 1 DOSE MT BID, (Reported) [Calm Gummies] , 1 CHEW PO BID, (Reported) Scheduled PRN Naproxen Sodium (Aleve) 220 Mg Tablet, 220 MG PO BID PRN for PAIN, (Reported) Ondansetron HCl (Ondansetron HCl) 4 Mg Tablet, 4 MG PO QID PRN for NAUSEA, (Reported) Sodium Chloride (Saline Nasal [place]) 44 Ml Ewing, 1 SPRAY NA QID PRN for NASAL DRYNESS, (Reported) Allergies Coded Allergies: Contrast Media (Verified Allergy, Severe, THROAT CLOSES UP, 09/23/16) Penicillins (Verified Allergy, Severe, anaphylaxis, 01/22/20) aspartame (Verified Allergy, Severe, ANAPHYLAXIS, 12/18/20) Sulfa (Sulfonamide Antibiotics) (Verified Allergy, Intermediate, hives, 01/22/20) latex (Verified Allergy, Intermediate, blisters, 01/23/20) TAPE (Verified Allergy, Mild, BANDAIDS - BLISTERS, 09/24/17) Uncoded Allergies: COVID SHOT PFIZER (Allergy, Severe, ANAPHYLAXIS, 12/17/20) GME ATTESTATION GME ATTESTATION My faculty preceptor for this patient encounter was physically present during the encounter and was fully available. All aspects of the patient interview, examination, medical decision making process, and medical care plan development were reviewed and approved by the faculty preceptor. The faculty preceptor is aware and concurs with the plan as stated in the body of this note and will attest to such by his/her cosignature. ATTENDING NOTE I, Garcia Adan MD, have independently examined this patient and performed my own physical exam, as well as reviewed the documentation and edited where necessary. I have discussed in detail with the resident / student the findings and plan of treatment as documented by the resident / student and edited their note. I agree with their findings and treatment plan and have edited their documentation. Total time spent on this discharge including coordination of care, review of chart , documentation and actual patient contact is around 32 minutes MORALES HARO DO December 18, 2020 16:43 GARCIA ADAN MD Dec 24, 2020 09:44
--- NOTE | 2020-12-19 16:57 | ECGEPIP ---
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
== END 2020-12-18 12:35 | disposition home or self-care (01) ==
LOC: M ED 22:18 → M ED INP 22:19 → ENRESERV 12-18 03:17 → M PCU 12-18 04:48
PROVIDERS: ADMIT Family Medicine; ATTEND Family Medicine
DX: R07.89 Other chest pain (principal); R79.1 Abnormal coagulation profile; M35.00 Sjogren syndrome, unspecified; M79.7 Fibromyalgia; F41.9 Anxiety disorder, unspecified; F32.9 Major depressive disorder, single episode, unspecified; Z86.718 Personal history of other venous thrombosis and embolism; R03.0 Elevated blood-pressure reading, without diagnosis of hypertension; E03.9 Hypothyroidism, unspecified; K21.9 Gastro-esophageal reflux disease without esophagitis; R74.01 Elevation of levels of liver transaminase levels; E66.9 Obesity, unspecified; Z79.82 Long term (current) use of aspirin; Z79.899 Other long term (current) drug therapy; Z91.040 Latex allergy status; Z91.041 Radiographic dye allergy status; Z88.7 Allergy status to serum and vaccine; Z88.0 Allergy status to penicillin; Z88.2 Allergy status to sulfonamides
CPT/HCPCS: 36415; 71045; 80048; 80053; 80076; 82550; 82553; 83690; 83735; 85025; 85379; 85610; 87631; 93005; 93041; 93970; 94760; 96372; 96374; 99285; J0360; J1650

== ENCOUNTER → 2020-12-31 | Outpatient (REF) | payer OTHER ==
[~2020-12-31] MED LIST changes: +ALEV220T22 PO; +ASPI-161 PO; +BIOTLIQ3 MT; +CALM GUMMIES PO; +DOXY20TA4 PO; +DOXY75CA3 PO; +HM S0.65; +MULTCHW12 PO; +ONDA-195 PO; +REFROIN OU; +SYNT25TA PO
== END ==
LOC: M LAB REF 14:02
PROVIDERS: ATTEND Dermatology
DX: L72.0 Epidermal cyst (principal)

== ENCOUNTER → 2021-10-21 | Outpatient (CLI) | payer OTHER | LOC: M SOG 08:44 | PROVIDERS: ATTEND Physician Assistant | DX: M79.605 Pain in left leg (principal); M25.572 Pain in left ankle and joints of left foot ==

== ENCOUNTER → 2021-10-27 | Outpatient (CLI) | payer OTHER | LOC: M RAD 10:49 | PROVIDERS: ATTEND Orthopaedic Surgery Hand Surgery | DX: S82.102 Unspecified fracture of upper end of left tibia (principal); X58.XXXA Exposure to other specified factors, initial encounter; Y92.89 Other specified places as the place of occurrence of the external cause; Y93.9 Activity, unspecified; Y99.9 Unspecified external cause status ==

== ENCOUNTER → 2022-01-06 | Outpatient (CLI) | payer OTHER | LOC: M SOG 08:01 | PROVIDERS: ATTEND Orthopaedic Surgery Hand Surgery | DX: M25.562 Pain in left knee (principal) ==

== ENCOUNTER → 2023-04-30 | Outpatient (CLI) | payer OTHER ==
[~2023-04-30] MED LIST changes: -HM S0.65; +LEVO25TA5; +SALI0.6531
== END ==
LOC: M PLAIMG 08:26
PROVIDERS: ATTEND Physician Assistant
DX: R93.422 Abnormal radiologic findings on diagnostic imaging of left kidney (principal); Z90.49 Acquired absence of other specified parts of digestive tract

== ENCOUNTER 2023-08-12 17:58 | Emergency (ER) | payer OTHER ==
[~2023-08-12] VITALS: Ht 170.2 cm; Wt 109.1 kg
[2023-08-12 18:39] VITALS: TEMP 99.1
[2023-08-12 19:31] LABS: BASO % 0.5 % (0.0-1.0); EOS % 0.5 % (0.0-3.0); HEMATOCRIT 40.4 % (36.0-47.0); HEMOGLOBIN 13.7 g/dl (12.0-15.5); LYMPH # 1.2 10^3/uL (1.5-5.0); LYMPH % 19.3 % (24.0-44.0); MEAN CORPUSCULAR HEMOGLOBIN 29.7 pg (27.0-33.0); MEAN CORPUSCULAR HGB CONC 33.9 g/dl (32.0-36.5); MEAN CORPUSCULAR VOLUME 87.6 fl (80.0-96.0); MONO # 0.4 10^3/uL (0.0-0.8); MONO % 7.1 % (2.0-8.0); NEUTROPHILS # 4.5 10^3/uL (1.5-8.5); NEUTROPHILS % 72.4 % (36.0-66.0); PLATELET COUNT, AUTOMATED 163 10^3/uL (150-450); RED BLOOD COUNT 4.61 10^6/uL (4.00-5.40); WHITE BLOOD COUNT 6.2 10^3/uL (4.0-10.0)
[2023-08-12 19:43] LABS: INR 1.07; PROTHROMBIN TIME 13.6 SECONDS (12.5-14.5)
[2023-08-12 19:44] LABS: PARTIAL THROMBOPLASTIN TIME 28.7 SECONDS (24.8-34.2)
[2023-08-12] MEDS ORDERED: KETOROLAC 30 MG/ML 1ML VIAL IV ONE (19:50)
[2023-08-12] MEDS ORDERED: ONDANSETRON 4MG 2ML VIAL IV ONE (19:50)
[2023-08-12] MEDS ORDERED: NS 1,000 ML IV ONE (19:50)
[2023-08-12 20:00] LABS: CK-MB VALUE MASS < 1.0 NG/ML (<3.6)
[2023-08-12 20:01] LABS: LIPASE 54 U/L (12-53)
[2023-08-12 20:02] LABS: CPK CREATINE PHOSPHOKINASE 67 U/L (34-145); MB/CK RELATIVE INDEX 1.49 (< OR =4)
[2023-08-12 20:03] LABS: ALBUMIN 3.8 G/DL (3.2-5.2); ALKALINE PHOSPHATASE 75 U/L (46-116); ALT/SGPT 151 U/L (7.0-40); AST/SGOT 95 U/L (<34); BILIRUBIN,DIRECT 0.3 MG/DL (<0.4); BILIRUBIN,TOTAL 0.7 MG/DL (0.3-1.2); BLOOD UREA NITROGEN 13 MG/DL (9-23); CALCIUM LEVEL 9.2 MG/DL (8.5-10.1); CARBON DIOXIDE LEVEL 26 MMOL/L (20-31); CHLORIDE LEVEL 107 MMOL/L (98-107); GLOMERULAR FILTRATION RATE > 60.0 (>51); GLUCOSE, FASTING 104 MG/DL (60-100); SODIUM LEVEL 142 MMOL/L (136-145); TOTAL PROTEIN 7.1 G/DL (5.7-8.2)
[2023-08-12 20:04] LABS: THYROID STIMULATING HORMONE 2.788 uIU/ML (0.55-4.78)
[2023-08-12 20:05] LABS: FREE T4 1.13 NG/DL (0.89-1.76)
[2023-08-12 20:34] LABS: D-DIMER QUANT 0.56 ug/mL (<0.5)
[2023-08-12 21:55] LABS: CK-MB VALUE MASS < 1.0 NG/ML (<3.6)
[2023-08-12 21:56] LABS: CPK CREATINE PHOSPHOKINASE 65 U/L (34-145); MB/CK RELATIVE INDEX 1.53 (< OR =4)
[2023-08-12] MEDS ORDERED: METR0.7526 TOP (23:13)
[2023-08-12] MEDS ORDERED: VITA500T41 PO (23:13)
[2023-08-12] MEDS ORDERED: PROT20TA11 PO (23:13)
[2023-08-12] MEDS ORDERED: MECL-136 PO (23:13)
[2023-08-12] MEDS ORDERED: VITA100093 PO (23:13)
[2023-08-12] MEDS ORDERED: CYCL-707 PO (23:13)
[2023-08-12] MEDS ORDERED: LEVO25TA5 PO (23:14)
[2023-08-12] MEDS ORDERED: HOME MED LIST COMPLETE! XX SCH (23:15)
[2023-08-12 23:30] VITALS: BP 150/88; O2SAT 98
== END 2023-08-13 | disposition home or self-care (01) ==
LOC: EDBD 17:58 → M ED 17:58
DX: R07.9 Chest pain, unspecified (principal); R10.9 Unspecified abdominal pain; R06.00 Dyspnea, unspecified; R79.1 Abnormal coagulation profile; F41.9 Anxiety disorder, unspecified; K21.9 Gastro-esophageal reflux disease without esophagitis; E66.9 Obesity, unspecified; E03.9 Hypothyroidism, unspecified; M35.00 Sjogren syndrome, unspecified; Z86.718 Personal history of other venous thrombosis and embolism; Z79.1 Long term (current) use of non-steroidal anti-inflammatories (NSAID); Z79.899 Other long term (current) drug therapy
CPT/HCPCS: 71045; 71250; 74176; 80048; 80076; 82550; 82553; 83690; 83880; 84439; 84443; 85025; 85379; 85610; 85730; 87486; 87581; 87633; 87798; 93005; 93041; 93970; 94760; 96361; 96374; 99285; J1885; J2405

== ENCOUNTER → 2024-04-21 | Outpatient (CLI) | payer MEDICARE ==
[~2024-04-21] MED LIST changes: -ASPI-161 PO; +ASPI-615 PO; +CYCL-707 PO; -DOXY20TA4 PO; +DOXY20TA6 PO; +LEVO25TA5 PO; +MECL-136 PO; +METR0.7526 TOP; +PETR3.5O OU; +PROT20TA11 PO; -REFROIN OU; +VITA100093 PO; +VITA500T41 PO
== END ==
LOC: M RAD 09:30
PROVIDERS: ATTEND Physician Assistant
DX: I83.812 Varicose veins of left lower extremity with pain (principal)